=== PATIENT | male | born 1965 | race Caucasian/White ===

== ENCOUNTER 2016-07-04 05:43 | Outpatient (CLI) | payer SELFPAY ==
[~2016-07-04] VITALS: Ht 180.3 cm; Wt 99.8 kg
--- OUTSIDE RECORDS SUMMARY | 2016-07-04 05:49 | XMS REPORT | Clinical Summary ---
Author Author User, [employer] Organization Gabriella Gardiner DO, [employer] Address Unknown Phone Allergies, Adverse Reactions, Alerts Allergy Name Reaction Description Start Date Severity Status Provider No Known Allergies Liseth Main Conditions or Problems Problem Name Problem Code Onset Date Status Entry Date Provider Comment Standard Description Annotate HEALTH SCREENING V70.0 Active Gabriella Gardiner Routine general medical examination at a health care facility HYPERTRIGLYCERIDEMIA 272.1 Active Gabriella Gardiner Pure hyperglyceridemia HYPERGLYCEMIA, MILD 790.6 Active Gabriella Gardiner Other abnormal blood chemistry SMOKER 305.1 Active Gabriella Gardiner Tobacco use disorder Medication List Medication Instructions Start Date Stop Date Generic Name NDC Status Provider Patient Instruction LISINOPRIL 20 MG TABS 1 PO DAILY LISINOPRIL 36926008311 Active Vanita Acevedo FISH OIL 1000 MG CAPS 1 PO daily OMEGA-3 FATTY ACIDS 70211842595 Active Gabriella Gardiner Immunizations Vaccine Administration Date Value Standard Description Influenza vaccine given done influenza virus vaccine, unspecified formulation Vital Signs Date Name Value Unit Range Description blood pressure, diastolic - 8462-4 80 mm[Hg] BP coleman blood pressure, systolic - 8480-6 130 mm[Hg] BP sys pulse rate E&M - 8867-4 80 /min Heart rate respiratory rate E&M - 9279-1 14 /min Resp rate temperature E&M 98.3 [degF] Body temperature weight E&M - 3141-9 230 [lb_av] Weight Measured Diagnostic Results Date Name Value Unit Range Description Clinical Lists Update: CBC,CMP,FLP,TSH,HGA1C - Chemistry Estimated Glomerular Filtration Rate (calc) 92 mL/min/1.73m2 cholesterol, serum 192 mg/dL albumin, serum 4.8 g/dL cholesterol/HDL ratio, serum, percent 3.8 anion gap, serum 9 sodium, serum 133 mmol/L alkaline phosphatase, serum 65 U/L triglyceride, serum, fasting 193 mg/dL bilirubin, serum, total 0.6 mg/dL alanine aminotransferase (SGPT), serum 42 U/L aspartate aminotransferase (SGOT), serum 28 U/L protein, total, serum 7.0 g/dL potassium, serum 4.4 mmol/L urea nitrogen, blood 16 mg/dL LDL cholesterol, serum 103 mg/dL thyroid stimulating hormone, serum 1.39 u[iU]/mL hemoglobin A1C, blood, as % of total hemoglobin 5.9 % calcium, serum 9.6 mg/dL HDL cholesterol, serum 50.0 mg/dL creatinine, serum 0.9 mg/dL carbon dioxide, venous blood 27.0 mmol/L chloride, serum 101 mmol/L glucose, plasma fasting 114 mg/dL Clinical Lists Update: CBC,CMP,FLP,TSH,HGA1C - Hematology hemoglobin, blood 15.4 g/dL hematocrit, blood 50 % platelet count 205 10*3/mm3 erythrocyte (RBC) count 5.17 10*6/mm3 leukocyte count, blood 7.2 10*3/mm3 red blood cell distribution width 14.0 % mean corpuscular volume, RBC 96 fL Clinical Lists Update: FLP - Chemistry cholesterol/HDL ratio, serum, percent 3.4 triglyceride, serum, fasting 107 mg/dL LDL cholesterol, serum 100 mg/dL HDL cholesterol, serum 50 mg/dL cholesterol, serum 172 mg/dL Procedures Code Procedure Name Date Entry Date Standard Description CPT-16532 Preventive, Est, (40-64) 17:23:08 CDT CPT-47499 Preventive, Est, (40-64) 14:45:01 CDT CPT-42936 Preventive, New, (40-64) 20:00:08 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
[2016-07-04] MEDS ORDERED: LISI-552 PO (13:24)
== END 2016-07-04 13:27 ==
LOC: PREOP 05:43
PROVIDERS: ATTEND Surgery
DX: Z01.818 Encounter for other preprocedural examination (principal); Z12.11 Encounter for screening for malignant neoplasm of colon

== ENCOUNTER 2016-07-08 08:33 | Day surgery (SDC) | payer OTHER ==
[~2016-07-08] VITALS: Ht 180.3 cm; Wt 99.8 kg
[~2016-07-08 08:33] MED LIST: LISI-552 PO
--- OUTSIDE RECORDS SUMMARY | 2016-07-08 08:36 | XMS REPORT | Continuity of Care Document ---
Author Author [facility] Organization [facility] Address Unknown Phone Unavailable Support Name Relationship Address Phone JIM HERNANDEZ MD Caregiver #[address] [facility] [place] [address] Insurance Providers Payer Name Policy Number Subscriber Name Relationship Unknown Advance Directives Directive Response Recorded Date/Time Advance Directives No 07/04/16 1:22pm Health Care Power of Registrar [employer] No 07/04/16 1:22pm Resuscitation Status Full Code 07/04/16 1:22pm Problems No problem information available. Medications Current Home Medications Medication Dose Units Route Directions Days/Qty Instructions Start Date Lisinopril 20 Mg 20 Mg Oral Daily 07/04/16 Social History Social History Problem Response Recorded Date/Time Alcohol Use Rarely Uses 07/04/2016 1:22pm Recreational Drug Use No 07/04/2016 1:22pm Recent Foreign Travel No 07/04/2016 1:22pm Recent Infectious Disease Exposure No 07/04/2016 1:22pm Sexually Transmitted Disease No 07/04/2016 1:22pm HIV/AIDS No 07/04/2016 1:22pm Smoking Status Current Everyday Smoker 07/04/2016 1:22pm Type Used Cigarettes 07/04/2016 1:22pm Recent Hopitalizations No 07/04/2016 1:22pm Sexually Transmitted Disease No 07/04/2016 1:22pm Query Response Start Date Stop Date Smoking Status Current Everyday Smoker Hospital Discharge Instructions No hospital discharge instructions. Plan of Care Discharge Date 07/04/16 1:27pm Prescriptions See Medication Section Functional Status No functional status results. Allergies, Adverse Reactions, Alerts No known allergies. Immunizations No immunization records. Vital Signs Acute Vital Signs Vital Response Date/Time Height (Feet) 5 feet 07/04/2016 1:08pm Height (Inches) 11.00 inches 07/04/2016 1:08pm Height (Calculated Centimeters) 180.380421 cm 07/04/2016 1:08pm Weight (Pounds) 220 pounds 07/04/2016 1:08pm Weight (Ounces) 0.0 oz 07/04/2016 1:08pm Weight (Calculated Grams) 52856.32 gm 07/04/2016 1:08pm Weight (Calculated Kilograms) 99.339257 kilograms 07/04/2016 1:08pm Calculated BMI 30.7 07/04/2016 1:08pm Results No known relevant diagnostic tests, laboratory data and/or discharge summary. Procedures No known history of procedures. Encounters Encounter Location Arrival/Admit Date Discharge/Depart Date Attending Provider Departed Clinic [facility] 07/04/16 5:43am 07/04/16 1: 27pm JIM HERNANDEZ MD
--- OUTSIDE RECORDS SUMMARY | 2016-07-08 08:37 | XMS REPORT | Continuity of Care Document ---
Author Author [facility] Organization [facility] Address Unknown Phone Unavailable Support Name Relationship Address Phone JIM HERNANDEZ MD Caregiver #[address] [facility] [place] [address] Insurance Providers Payer Name Policy Number Subscriber Name Relationship Unknown Advance Directives Directive Response Recorded Date/Time Advance Directives No 07/04/16 1:22pm Health Care Power of Plasticator No 07/04/16 1:22pm Resuscitation Status Full Code [...] 11.00 inches 07/04/2016 1:08pm Height (Calculated Centimeters) 180.491095 cm 07/04/2016 1:08pm Weight (Pounds) 220 pounds 07/04/2016 1:08pm Weight (Ounces) 0.0 oz 07/04/2016 1:08pm Weight (Calculated Grams) 36443.32 gm 07/04/2016 1:08pm Weight (Calculated Kilograms) 99.444475 kilograms 07/04/2016 1:08pm Calculated BMI 30.7 07/04/2016 1:08pm Results No known relevant diagnostic tests, laboratory data and/or discharge summary. Procedures No known history of procedures. Encounters Encounter Location Arrival/Admit Date Discharge/Depart Date Attending Provider Departed Clinic [facility] 07/04/16 5:43am 07/04/16 1: 27pm JIM HERNANDEZ MD
[2016-07-08 08:45] VITALS: BP 128/90
[2016-07-08] MEDS ORDERED: NS IV 500 ML 500 ML IV PRN (08:50)
--- NOTE | 2016-07-08 08:55 | Pre-Op Note & Conscious Sedat ---
Pre-Operative Progress Note H&P Reviewed The H&P was reviewed, patient examined and no changes noted. Date H&P Reviewed: Jul 08, 2016 Time H&P Reviewed: 08:55 Pre-Op Diagnosis: screening Conscious Sedation Pre-Proced ASA Class: 2 Airway Mallampati Classification: ([place] appropriate class) I. II. III, IV Lungs Heart ASA score ASA 1: a normal healthy patient ASA 2: a patient with a mild systemic disease (mid diabetes, controlled hypertension, obesity ASA 3: a patient with a severe systemic disease that limits activity (angina , COPD, prior Myocardial infarction) ASA 4: a patient with an incapacitating disease that is a constant threat to life (CHF, renal failure) ASA 5: a moribund patient not expected to survive 24 hrs. (ruptured aneurysm) ASA 6: a declared brain patient whose organs are being harvested. For emergent operations, add the letter E after the classification Grade 1 Sedation Plan: Discussed options with patient/fam Note The patient is an appropriate candidate to undergo the planned procedure, sedation, and anesthesia. The patient immediately re-assessed prior to indication. JIM HERNANDEZ MD Jul 08, 2016 8:55 am
[2016-07-08] MEDS ORDERED: FLUMAZENIL (ROMAZICON) 0.1 MG/ML 5 ML VIAL INJ PRN (09:00)
[2016-07-08] MEDS ORDERED: NALOXONE 0.4 MG/ML 1 ML (NARCAN) VIAL IVP PRN (09:00)
[2016-07-08] MEDS ORDERED: fentaNYL INJECTION 100 MCG/2 ML AMP ONE ×2 (09:34)
[2016-07-08] MEDS ORDERED: MIDAZOLAM 2 MG/2 ML (VERSED) VIAL ONE ×3 (09:34)
[2016-07-08] MEDS: fentaNYL INJECTION 100 MCG/2 ML AMP IVP PRN ×2 (09:52→09:55)
[2016-07-08] MEDS: MIDAZOLAM 2 MG/2 ML (VERSED) VIAL IVP PRN ×2 (09:53→09:56)
--- NOTE | 2016-07-08 10:11 | Progress Note-Post Operative ---
Post-Operative Progess Note Pre-Operative Diagnosis screening Post-Operative Diagnosis very few sigmoid diverticulae Post-Op Procedure Note Date of Procedure: Jul 08, 2016 Name of Procedure: colonoscopy to cecum Anesthesia Type sedation JIM HERNANDEZ MD Jul 08, 2016 10:11 am
--- NOTE | 2016-07-08 10:12 | Discharge Inst-Simple/Standard ---
Discharge Inst-Standard Discharge Medications New, Converted or Re-Newed RX: Other Patient Instructions/Follow Up Plan of Care/Instructions/FU: repeat colonoscopy in 10 years Activity as Tolerated: Yes Discharge Diet: No Restrictions JIM HERNANDEZ MD Jul 08, 2016 10:12 am
[2016-07-08 10:20] VITALS: BP 107/71
[2016-07-08 10:50] VITALS: BP 122/77
[2016-07-08 11:00] VITALS: BP 122/77
--- NOTE | 2016-07-08 12:49 | PROCEDURE REPORT ---
PROCEDURE PHYSICIAN: JIM HERNANDEZ DATE OF PROCEDURE: PROCEDURE: Screening colonoscopy. SURGEON: Dr. Hernandez. INDICATION FOR THE PROCEDURE: This gentleman came in for screening colonoscopy. He denied any family history of colon cancer. Informed consent was obtained after reviewing the procedure in detail. DESCRIPTION OF PROCEDURE: He was placed in left lateral decubitus position and his vital signs were monitored. Conscious sedation was achieved using Versed and fentanyl. Digital rectal examination was unremarkable. The colonoscope was then introduced into the rectum and advanced all the way up to the cecum. It was then withdrawn slowly and the mucosa examined in a systematic fashion. FINDINGS: 1. Occasional sigmoid diverticula. 2. No polyps were found. He tolerated the procedure well and was taken back to the nursing area in a stable condition. IMPRESSION: 1. Screening colonoscopy. 2. No polyps. 3. Very few sigmoid diverticula. 4. Recommend repeating in 10 years. Job ID: [id number] Dictated Date: 07/08/2016 10:10:52 Special Education Aide Date: 07/08/2016 12:46:53 / lloyd MITCHELL
== END 2016-07-08 11:00 | disposition home or self-care (01) ==
LOC: ENDO 08:33
PROVIDERS: ATTEND Surgery
DX: Z12.11 Encounter for screening for malignant neoplasm of colon (principal); K57.90 Diverticulosis of intestine, part unspecified, without perforation or abscess without bleeding

== ENCOUNTER → 2020-12-05 | Outpatient (CLI) | payer OTHER ==
[~2020-12-05] MED LIST changes: -LISI-552 PO; +LISI20TA26 PO
--- NOTE | 2020-12-05 10:21 | Diagnostic Imaging Report ---
Indication: Cough. Findings: The lungs are clear. There is no failure, effusion or pneumothorax. Impression: No acute appearing abnormality. Dictated by: Dictated on workstation # [id number]
== END ==
LOC: RAD 08:51
PROVIDERS: ATTEND Internal Medicine
DX: R05 Cough (principal)
CPT/HCPCS: 71045

== ENCOUNTER → 2020-12-11 | Outpatient (CLI) | payer OTHER ==
[2020-12-11 17:13] LABS: BASOPHILS # (AUTO) 0.1 10^3/uL (0.0-0.1); BASOPHILS % (AUTO) 1 % (0-10); EOSINOPHILS # (AUTO) 0.1 10^3/uL (0.0-0.3); EOSINOPHILS % (AUTO) 1 % (0-10); HEMATOCRIT 47 % (40-54); HEMOGLOBIN 15.4 g/dL (13.3-17.7); LYMPHOCYTES # (AUTO) 2.9 10^3/uL (1.0-4.0); LYMPHOCYTES % (AUTO) 23 % (12-44); MEAN CORPUSCULAR HEMOGLOBIN 30 pg (25-34); MEAN CORPUSCULAR HGB CONC 33 g/dL (32-36); MEAN CORPUSCULAR VOLUME 91 fL (80-99); MEAN PLATELET VOLUME 11.9 fL (9.0-12.2); MONOCYTES # (AUTO) 1.2 10^3/uL (0.0-1.0); MONOCYTES % (AUTO) 9 % (0-12); NEUTROPHILS # (AUTO) 8.5 10^3/uL (1.8-7.8); NEUTROPHILS % (AUTO) 66 % (42-75); PLATELET COUNT 183 10^3/uL (130-400); WHITE BLOOD COUNT 12.8 10^3/uL (4.3-11.0)
[2020-12-11 17:24] LABS: CHLORIDE 109 MMOL/L (98-107); POTASSIUM 4.2 MMOL/L (3.6-5.0); SODIUM 143 MMOL/L (135-145)
[2020-12-11 17:25] LABS: CALCIUM 9.1 MG/DL (8.5-10.1)
[2020-12-11 17:26] LABS: GLUCOSE 105 MG/DL (70-105)
[2020-12-11 17:27] LABS: TOTAL PROTEIN 6.4 GM/DL (6.4-8.2)
[2020-12-11 17:28] LABS: BILIRUBIN,TOTAL 0.9 MG/DL (0.1-1.0); CARBON DIOXIDE 21 MMOL/L (21-32)
[2020-12-11 17:30] LABS: ALKALINE PHOSPHATASE 84 U/L (40-136); CREATININE SERUM 0.89 MG/DL (0.60-1.30); GFR ESTIMATED 89
[2020-12-11 17:31] LABS: BUN/CREATININE RATIO 26; ERYTHROCYTE SEDIMENTATION RATE 1 MM/HR (0-30)
[2020-12-11 17:33] LABS: ALANINE AMINOTRANSFERASE 51 U/L (0-55)
== END ==
LOC: LAB 16:38
PROVIDERS: ATTEND Internal Medicine
DX: J18.9 Pneumonia, unspecified organism (principal)
CPT/HCPCS: 36415; 80053; 83605; 83880; 84484; 85025; 85379; 85652

== ENCOUNTER 2020-12-18 10:21 | Inpatient (IN) | payer OTHER ==
[~2020-12-18] VITALS: Ht 182.9 cm; Wt 101.1 kg
[2020-12-18] VITALS (10 sets, daily range): BP systolic 81–112; BP diastolic 44–91
[2020-12-18] MEDS ORDERED: RT-ALBUTEROL SULF 2.5 MG/3 ML PRE-MIX VIAL INH ONE (11:30)
--- NOTE | 2020-12-18 12:15 | Progress Note ---
ELA JI MED STUDENT 12/18/20 1215: Progress Note CC: SOB HPI: Mr. Salazar is a 55 year old white male who presents as a direct admit with a three week history of SOB. He states that he initially became SOB on November 25. He reports quitting smoking on November 17 and was a 1PPD smoker x 21 years. The week after quitting smoking he began vigorously biking starting at 2 miles, then 4, up to 16 miles per day, after about 5 days he had to quit because the SOB started. He reports awakening at night multiple times with extreme "suffocating" SOB. These events have been happening multiple times each night for the past few weeks causing him to sleep 3-4 hours/night. He also reports multiple episodes happening throughout the day, which cause him to "have to work to breathe" suddenly. He reports having to leave work as he is too SOB. He denies any associated fevers, chills, cough, dizziness, palpitations, nausea, vomiting, diarrhea, or syncopal episodes. He has been wearing oxygen at night at 1.5LPM which has not improved his symptoms or lessened the frequency of these episodes. He has been seen by Dr. Gardiner four times over the past 2 weeks on an outpatient basis for these symptoms for which he has been worked up. He had been given outpatient antibiotics and steroids by Dr. Gardiner which have not improved his symptoms. He reports presenting to the walk in clinic in [facility] on November 27 where he had a workup including COVID-19 testing which was negative. On the he was last seen by Dr. Gardiner and his D-dimer was elevated, at which time he was started on eliquis and given lasix as well. PMH: HTN, controlled with losartan. Non insulin dependent diabetes mellitus PSH: None Allergies: NKDA. No environmental or food allergies. Medications: Losartan 50mg po Qday. Glimepiride 1 mg po Qday. Eliquis 2.5mg po Q am, 5mg Q PM. Furosemide 40mg po on Friday and Friday. SH: Former 1PPD smoker x 21 years, quit approx 1 month ago. Drinks 6-8 beers at a time approx one time a month. No recreational drug use. 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 FH: Mom, [place] at 44years old, at 58 years old. Dad, due to unknown causes. No kids. 1 brother reported as many health problems. ROS: General: Reports SOB at rest and with exertion. Denies fevers/chills/myalgias. HEENT: Denies headaches, congestion, sore throat. Reports recent blurry vision. Neck: Denies cough or sore throat. Denies throat swelling. Cardiovascular: Denies palpitations or fluttering. Denies chest pain. Denies lower extremity swelling. Pulmonary: Reports SOB. Denies cough. GI: Denies N/V/D. : Denies dysuria, frequency, or urgency Neuro: Reports blurry vision. Denies headache, dizziness, or syncopal episodes. Physical Exam: BP 112/76 RR 20 SPO2 96%RA P 106 T 36.8 General: Middle aged individual appearing stated age in minimal distress. HEENT: Normocephalic, atraumatic, sclera anicteric, posterior pharynx without exudates or erythema. Nares patent without discharge. Cardiovascular: Irregullary irregular rhythm by auscultation. No JVD. No lower extrem edema. Radial and dorsalis pedis pulses +2/4 bilaterally. Cap refill <3 seconds bilateral hands. Respiratory: CTAB. No wheezes, rhonchi, or rales. No accessory muscle use. Abdomen: BS normoactive x 4 quadrants. No distention, guarding, or rebound tenderness. Extremities: Bilat abrasives sales representative strength 5/5. Bilat ankle dorsiflexion and plantarflexion 5/5. Extremities warm and pink. Neuro: Cranial nerves 2-12 grossly intact. Labs/Images: Na 139 ABG: Venous Doppler lower extrem: CT chest Angio: Chest Xray: K 4.3 7.41 No evidence of DVT in either lower extremity. Creat 0.88 44 lactic acid 1.17 48 Troponin <0.028 28 BNP 220.9 Procalcitonin 0.06 UDS: negative COVID PCR: negative Legionella: pending Assessment: Dyspnea -obtain chest xray -ABG -albuterol neb -COVID PCR negative -blood cultures x 2 -Procalcitonin Atrial fibrillation- probably new onset -Cardiology consult -Cardiazem gtt per cardiology -Therapeutic lovenox dosing -Hold eliquis for now -Tropnonin <0.028 -BNP 220.9 -Get echocardiogram -EKG Possible Pulmonary embolism- less likely -D dimer elevated at 1.00 -Bilat lower extremity venous doppler US -CT Angio chest Possible anxiety disorder related to SOB -Counseled on calming/relaxing techniques Diabetes -ACHS accuchecks -Start home glimepiride -continue to monitor sugars HTN -Start home losartan -Continue to monitor GABRIELLA GARDINER DO 12/18/202054: Supervisory-Addendum Brief Verification & Attestation Participated in pt care: history, MDM, physical Personally performed: exam, history, MDM, supervision of care Care discussed with: Medical Student Procedures: n/a Results interpretation: Verified all documentation Verification and Attestation of Medical Student E/M Service A medical student performed and documented this service in my presence. I reviewed and verified all information documented by the medical student and made modifications to such information, when appropriate. I personally performed the physical exam and medical decision making. Gabriella Gardiner, Dec 18, 2020,20:55 ELA JI MED STUDENT Dec 18, 2020 12:15 GABRIELLA GARDINER DO Dec 18, 2020 20:55
[2020-12-18] MEDS ORDERED: IOHEXOL 350 MG/ML 100 ML (OMNIPAQUE 350) VIAL IV ONE (13:00)
[2020-12-18] MEDS ORDERED: NS 100 ML (IVPB) BAG IV ONE (13:00)
[2020-12-18] MEDS ORDERED: CATHETER FLUSH 10 ML SYR IV PRN ×2 (13:00→15:45)
[2020-12-18] MEDS ORDERED: HOLD METFORMIN - RECEIVED CONTRAST 20 ML VIAL IV SCH (13:00)
[2020-12-18 13:17] LABS: BASOPHILS # (AUTO) 0.1 10^3/uL (0.0-0.1); BASOPHILS % (AUTO) 1 % (0-10); EOSINOPHILS # (AUTO) 0.2 10^3/uL (0.0-0.3); EOSINOPHILS % (AUTO) 1 % (0-10); HEMATOCRIT 48 % (40-54); LYMPHOCYTES # (AUTO) 2.4 10^3/uL (1.0-4.0); LYMPHOCYTES % (AUTO) 20 % (12-44); MEAN CORPUSCULAR HEMOGLOBIN 30 pg (25-34); MEAN CORPUSCULAR HGB CONC 33 g/dL (32-36); MEAN CORPUSCULAR VOLUME 90 fL (80-99); MEAN PLATELET VOLUME 11.6 fL (9.0-12.2); MONOCYTES # (AUTO) 1.1 10^3/uL (0.0-1.0); MONOCYTES % (AUTO) 9 % (0-12); NEUTROPHILS % (AUTO) 68 % (42-75); PLATELET COUNT 153 10^3/uL (130-400); WHITE BLOOD COUNT 11.7 10^3/uL (4.3-11.0)
[2020-12-18 13:23] LABS: AMPHETAMINE SCREEN, URINE NEGATIVE (NEGATIVE); BARBITURATE SCREEN URINE NEGATIVE (NEGATIVE); BENZODIAZEPINES SCREEN URINE NEGATIVE (NEGATIVE); CANNABINOID SCREEN, URINE NEGATIVE (NEGATIVE); COCAINE SCREEN URINE NEGATIVE (NEGATIVE); METHADONE STAT NEGATIVE (NEGATIVE); METHAMPHETAMINE SCREEN URINE S NEGATIVE (NEGATIVE); OPIATE SCREEN URINE NEGATIVE (NEGATIVE); OXYCODONE STAT NEGATIVE (NEGATIVE); PROPOXYPHENE STAT NEGATIVE (NEGATIVE); TRICYCLIC ANTIDEPRESSANTS SCRE NEGATIVE (NEGATIVE)
[2020-12-18 13:28] LABS: ABG BASE EXCESS 3.2 MMOL/L (-2.5-2.5); ABG OXYGEN SATURATION 80 % (94-100); ABG PCO2 44 MMHG (35-45); ABG PH 7.41 (7.37-7.43); ABG PO2 48 MMHG (79-93); ABG TCO2 28.9 MMOL/L (21.0-31.0); PATIENT TEMP 36.8; VENTILATOR NO
[2020-12-18 13:28] LABS: INR 1.1 (0.8-1.4); PROTHROMBIN TIME PATIENT 14.8 SEC (12.2-14.7)
[2020-12-18] MEDS ORDERED: dilTIAZem DRIP PRE-MIX 125 ML IV ONE (13:28)
[2020-12-18 13:37] LABS: ALANINE AMINOTRANSFERASE 38 U/L (0-55); ALBUMIN 3.9 GM/DL (3.2-4.5); ALKALINE PHOSPHATASE 91 U/L (40-136); BILIRUBIN,TOTAL 1.1 MG/DL (0.1-1.0); BUN/CREATININE RATIO 26; CALCIUM 9.3 MG/DL (8.5-10.1); CARBON DIOXIDE 25 MMOL/L (21-32); CHLORIDE 106 MMOL/L (98-107); CREATININE SERUM 0.88 MG/DL (0.60-1.30); GFR ESTIMATED 90; GLUCOSE 162 MG/DL (70-105); POTASSIUM 4.3 MMOL/L (3.6-5.0); SODIUM 139 MMOL/L (135-145); TOTAL PROTEIN 6.7 GM/DL (6.4-8.2)
[2020-12-18] MEDS: dilTIAZem DRIP PRE-MIX 125 ML IV SCH ×2 (13:39→22:15)
[2020-12-18] MEDS ORDERED: FURO40TA4 PO (13:44)
[2020-12-18] MEDS ORDERED: APIX5TAB PO ×2 (13:44)
[2020-12-18] MEDS ORDERED: GLIM1TAB4 PO (13:44)
[2020-12-18] MEDS ORDERED: LOSA50TA63 PO (13:44)
[2020-12-18] MEDS: ENOXAPARIN 100 MG/1 ML (LOVENOX) SYR SC SCH (14:39)
--- NOTE | 2020-12-18 14:44 | Diagnostic Imaging Report ---
PROCEDURE: US Venous Lower Ext Genaro. TECHNIQUE: Multiple real-time grayscale images were obtained over the lower extremities in various projections, bilaterally. Additional duplex Doppler and color Doppler images were also obtained. INDICATION: Elevated D-dimer. FINDINGS: The common femoral, femoral, popliteal veins and tibial veins demonstrate normal response to compression, augmentation and Valsalva. There are no abnormal lower extremity fluid collections or masses. IMPRESSION: No evidence of deep venous thrombosis in either lower extremity. Dictated by: Dictated on workstation # [id number]
--- NOTE | 2020-12-18 15:56 | Consultation-Cardiology ---
HPI-Cardiology Cardiology Consultation: Date of Consultation 12/18/2020 Date of Admission 12/18/2020 Attending Physician Gabriella Gardiner DO Admitting Physician Gabriella Gardiner DO Consulting Physician BHARATHI ALMODOVAR JR, MD HPI: Time Seen by a Provider: 15:50 Chief Complaint: Reason for consultation: Shortness of breath. mEigdio Is a 55-year-old male with no known history of coronary artery disease but with risk factors of hypertension, type 2 diabetes mellitus, and previous cigarette smoking having quit about 3 weeks ago. About 3-4 weeks ago he just decided that it was time to become more healthy and that he would quit smoking. Within a few days of quitting smoking, he started developing a cough productive of some whitish mucus. At first he thought this was just related to the smoking cessation. However, as time went on, he started developing worsening shortness of breath. 2 weeks ago he went to [facility] and discussed his concerns. He had a Covid test which was negative and he was sent home. However, as time has gone on, his breathing has become worse and worse. The cough has persisted. He denies any fever or chills. He was actually using some supplemental oxygen that he had at home for a family member and this was helping him breathe. He had to miss 1 or 2 days of work due to his shortness of breath. He denies any chest discomfort. He ultimately saw his primary provider who did some blood work which showed an elevated D-dimer. When the D-dimer came back elevated, he was told to start apixaban and was scheduled for a chest CT this week. However, this morning his breathing was worse and he called his primary doctor and told him he was coming to the hospital for further evaluation. For at least the past several days has been having paroxysmal nocturnal dyspnea and orthopnea. Last night he tried sleeping in a chair but still could not get comfortable enough to catch his breath. He denies any palpitations but he was checking his heart rate on a pulse oximeter he had at home and was noticing tachycardia. He denies lightheadedness, syncope, or ankle edema. When he arrived at the hospital, he was found to be in atrial fibrillation with a rapid ventricular rate. He was started on intravenous diltiazem and transferred to the intensive care unit. Because of the shortness of breath and atrial fibrillation, a cardiology consultation was requested. Certain portions of this document may have been dictated utilizing voice recognition technology. Inherent to this technology, typographical and grammatical errors may exist. As much as I am diligent to identify and correct these mistakes, some errors may remain in the document. Review of Systems-Cardiology Review of Systems Other comments Review of 10 organ systems is as per the history of present illness, otherwise negative. [id number] Hx Patient Social History Marrital Status: Employed/Student: employed Smoking Status: Former Smoker Have you traveled recently?: No Alcohol Use?: Yes Pt feels they are or have been: No Past Medical History PMH As described under Assessment. Family Medical History Family Medical History: The patient does not know of any family history of premature coronary artery disease. Allergies and Home Medications Allergies Coded Allergies: No Known Drug Allergies (Unverified , 07/04/16) Home Medications Apixaban 5 Mg Tablet, 5 MG PO HS, (Reported) Last Action: Reviewed Apixaban 5 Mg Tablet, 2.5 MG PO DAILY, (Reported) TAKES OF A 5MG TAB Last Action: Reviewed Furosemide 40 Mg Tablet, 40 MG PO SUN,SAT, (Reported) Last Action: Reviewed Glimepiride 1 Mg Tablet, 1 MG PO 1800, (Reported) Last Action: Reviewed Losartan Potassium 50 Mg Tablet, 50 MG PO DAILY, (Reported) Last Action: Reviewed Patient Home Medication List Home Medication List Reviewed: Yes Exam Vital Signs Vital Signs Date Time Temp Pulse Resp B/P (MAP) Pulse Ox O2 Delivery O2 Flow Rate FiO2 12/18/20 15:26 35.6 12/18/20 14:12 Room Air 12/18/20 13:20 106 20 112/76 (88) 96 Physical Exam General: Alert. No acute distress. Well nourished and appears stated age. He is overweight. Eye: Extraocular movements are intact. Conjunctivae are clear. There are no xanthelasma. HENT: Normocephalic. Atraumatic. Carotid pulsations 2/2 without bruits. Neck: Jugular venous pressure does not appear elevated. No thyromegaly appreciated. Respiratory: Lungs are clear to auscultation. Respirations are non-labored. Breath sounds are equal. Symmetrical chest wall expansion. Cardiovascular: Tachycardia with irregular rhythm. No murmur. No gallop. Point of maximal impulse is not appear displaced. Good pulses equal in all extremities. No edema. Gastrointestinal: Soft. Normal bowel sounds. Skin: Skin turgor is normal. There is no pallor. Musculoskeletal: No kyphosis or scoliosis appreciated. Neurologic: Alert and oriented to person, place, time. Cranial nerves 3-12 appear grossly intact. The patient has good motor tone strength in the upper and lower extremities bilaterally. Psychiatric: Cooperative. Appropriate mood & affect. Labs Laboratory Tests Test 12/18/20 11:59 12/18/20 12:05 12/18/20 12:55 12/18/20 13:00 Range/Units SARS-CoV-2 RNA (RT-PCR) Not Detected Not Detecte White Blood Count 11.7 H 4.3-11.0 10^3/uL Red Blood Count 5.36 4.30-5.52 10^6/uL Hemoglobin 16.0 13.3-17.7 g/dL Hematocrit 48 40-54 % Mean Corpuscular Volume 90 80-99 fL Mean Corpuscular Hemoglobin 30 25-34 pg Mean Corpuscular Hemoglobin Concent 33 32-36 g/dL Red Cell Distribution Width 14.0 10.0-14.5 % Platelet Count 153 130-400 10^3/uL Mean Platelet Volume 11.6 9.0-12.2 fL Immature Granulocyte % (Auto) 1 % Neutrophils (%) (Auto) 68 42-75 % Lymphocytes (%) (Auto) 20 12-44 % Monocytes (%) (Auto) 9 0-12 % Eosinophils (%) (Auto) 1 0-10 % Basophils (%) (Auto) 1 0-10 % Neutrophils # (Auto) 8.0 H 1.8-7.8 10^3/uL Lymphocytes # (Auto) 2.4 1.0-4.0 10^3/uL Monocytes # (Auto) 1.1 H 0.0-1.0 10^3/uL Eosinophils # (Auto) 0.2 0.0-0.3 10^3/uL Basophils # (Auto) 0.1 0.0-0.1 10^3/uL Immature Granulocyte # (Auto) 0.1 0.0-0.1 10^3/uL Prothrombin Time 14.8 H 12.2-14.7 SEC INR Comment 1.1 0.8-1.4 D-Dimer 1.00 H 0.00-0.49 UG/ML Sodium Level 139 135-145 MMOL/L Potassium Level 4.3 3.6-5.0 MMOL/L Chloride Level 106 98-107 MMOL/L Carbon Dioxide Level 25 21-32 MMOL/L Anion Gap 8 5-14 MMOL/L Blood Urea Nitrogen 23 H 7-18 MG/DL Creatinine 0.88 0.60-1.30 MG/DL Estimat Glomerular Filtration Rate 90 BUN/Creatinine Ratio 26 Glucose Level 162 H 70-105 MG/DL Lactic Acid Level 1.17 0.50-2.00 MMOL/L Calcium Level 9.3 8.5-10.1 MG/DL Corrected Calcium 9.4 8.5-10.1 MG/DL Total Bilirubin 1.1 H 0.1-1.0 MG/DL Aspartate Amino Transf (AST/SGOT) 32 5-34 U/L Alanine Aminotransferase (ALT/SGPT) 38 0-55 U/L Alkaline Phosphatase 91 40-136 U/L Troponin I < 0.028 <0.028 NG/ML B-Type Natriuretic Peptide 220.9 H <100.0 PG/ML Total Protein 6.7 6.4-8.2 GM/DL Albumin 3.9 3.2-4.5 GM/DL Procalcitonin 0.06 <0.10 NG/ML Urine Opiates Screen NEGATIVE NEGATIVE Urine Oxycodone Screen NEGATIVE NEGATIVE Urine Methadone Screen NEGATIVE NEGATIVE Urine Propoxyphene Screen NEGATIVE NEGATIVE Urine Barbiturates Screen NEGATIVE NEGATIVE Ur Tricyclic Antidepressants Screen NEGATIVE NEGATIVE Urine Phencyclidine Screen NEGATIVE NEGATIVE Urine Amphetamines Screen NEGATIVE NEGATIVE Urine Methamphetamines Screen NEGATIVE NEGATIVE Urine Benzodiazepines Screen NEGATIVE NEGATIVE Urine Cocaine Screen NEGATIVE NEGATIVE Urine Cannabinoids Screen NEGATIVE NEGATIVE Test 12/18/20 13:17 12/18/20 13:26 Range/Units Blood Gas Puncture Site unk Blood Gas Patient Temperature 36.8 Arterial Blood pH 7.41 7.37-7.43 Arterial Blood Partial Pressure CO2 44 35-45 MMHG Arterial Blood Partial Pressure O2 48 L 79-93 MMHG Arterial Blood HCO3 28 H 23-27 MMOL/L Arterial Blood Total CO2 28.9 21.0-31.0 MMOL/L Arterial Blood Oxygen Saturation 80 L 94-100 % Arterial Blood Base Excess 3.2 H -2.5-2.5 MMOL/L [place] Test unk Blood Gas Ventilator Setting NO Blood Gas Inspired Oxygen unk Glucometer 158 H 70-110 MG/DL Radiology ECHOCARDIOGRAM: Moderate left ventricular dilatation with normal left ventricular wall thickness. Severe left ventricular systolic dysfunction with an estimated ejection fraction of 15-20% with global hypokinesis. Mildly dilated left atrium. Mild mitral regurgitation. Normal estimated pulmonary artery systolic pressure. ECG Impression ECG Comment Atrial fibrillation with a rapid ventricular rate with nonspecific ST-T wave changes. Diagnosis/Problems Diagnosis/Problems (1) Paroxysmal atrial fibrillation Assessment & Plan: He has atrial fibrillation with rapid ventricular rate. Exact duration unknown since the patient seems to be asymptomatic with this. He does not have significant atrial enlargement on his echocardiogram which suggests that this may be a relatively new finding. Ultimately, he will need anticoagulation for 30 days and then we can consider a cardioversion at that time. For the time being, we will continue IV diltiazem for rate control. I will start adding an oral beta-darline. I will add a TSH level to his admission labs. Given that he also has severe left ventricular systolic dysfunction, it is unclear whether the cardiomyopathy led to the atrial fibrillation or if the atrial fibrillation led to the tachycardia. (2) Acute systolic heart failure Assessment & Plan: His symptoms are certainly consistent with heart failure over the past few weeks. He had a negative Covid test. His BNP level is elevated. He will be undergoing a chest CT with IV contrast due to the elevated D-dimer level. This may give us some insight as to whether or not he has pulmonary edema. I will start him on low-dose metoprolol succinate. I will also start him on IV Lasix. (3) Cardiomyopathy Assessment & Plan: He has severe left ventricular systolic dysfunction of undetermined etiology. As above, this could be tachycardia mediated cardiomyopathy related to undiagnosed/newly diagnosed atrial fibrillation. On the other hand, he has several cardiac risk factors and coronary ischemia is certainly in the differential diagnosis. As such, I recommend further evaluation with a cardiac catheterization. I will plan on doing the study tomorrow. In the interim, I will start him on metoprolol succinate. For the time being, I will hold off on restarting losartan so that we can help avoid iatrogenic hypotension. Furthermore, he will be receiving IV contrast today for the CT scan and arterial contrast tomorrow for the heart cath. (4) Essential hypertension Assessment & Plan: Presently controlled on IV diltiazem. I will be adding in metoprolol succinate as outlined above. Hopefully, we can get his heart rate under control on oral medication and stop the IV diltiazem. At that point, we may be able to add back in the losartan. (5) Type 2 diabetes mellitus with complication Assessment & Plan: His primary provider will be managing this condition. He may benefit from a SGLT2 inhibitor in the long run. BHARATHI ALMODOVAR JR, MD Dec 18, 2020 15:56
[2020-12-18] MEDS ORDERED: ASPIRIN E.C. 81 MG (ECOTRIN) TAB PO ONE (16:00)
[2020-12-18] MEDS ORDERED: FUROSEMIDE 40 MG/4 ML INJ (LASIX) IVP ONE (16:15)
--- NOTE | 2020-12-18 16:22 | Tele-ICU Progress Note ---
Progress Note Video assessment done , Hemodynamically stable Available charting reviewed, discussed with RN NO TELE-ICU CONSULT REQUESTED CONTINUE TO MONITOR PER USUAL TELE-ICU PROTOCOL afib RVR - cardizem gtt , full dose lovenox -cards consulted , ECHO pending - CTA chest pending Leukocytosis - ? bronchitis vs PNA - CT pending , OFF ABX now as per kamila HERNÁNDEZ No need for Tele-ICU interventions Plans as delineated by bedside physicians / consultants Focused Exam Lactate Level 12/18/20 12:55: Lactic Acid Level 1.17 Height, Weight, BMI Height: 5'11.00" Weight: 220lbs. 0.0oz. 99.536088or; 28.87 BMI Method: Lactic Acid Level Laboratory Tests Test 12/18/20 12:55 Lactic Acid Level 1.17 MMOL/L (0.50-2.00) JASSI GOFF MD Dec 18, 2020 16:22
--- NOTE | 2020-12-18 16:37 | Diagnostic Imaging Report ---
PROCEDURE: CT angiography of the chest with contrast. TECHNIQUE: Multiple contiguous axial images were obtained through the chest after uneventful bolus administration of intravenous contrast. 3D reconstructed CTA MIP acquisitions were also performed. Auto Exposure Controls were utilized during the CT exam to meet ALARA standards for radiation dose reduction. INDICATION: Elevated d-dimer The lungs are clear. There are small bilateral pleural effusions which layer to a depth of 1-2 cm on the right and less than 1 cm on the left. There is no pneumothorax. There is no mediastinal mass or hemorrhage. The aorta is not opacified and cannot be evaluated for dissection but there is no aneurysm. No pulmonary embolus is seen. IMPRESSION: There are small bilateral effusions. No pulmonary embolus is seen. Dictated by: Dictated on workstation # [id number]
[2020-12-18] MEDS ORDERED: LOPERAMIDE 2 MG (IMODIUM) TABLET PO PRN (18:30)
[2020-12-18] MEDS ORDERED: CALCIUM CARBONATE 500 MG (TUMS) TAB.CHEW PO PRN (18:30)
[2020-12-18] MEDS ORDERED: MELATONIN 3 MG TABLET PO PRN (18:30)
[2020-12-18] MEDS ORDERED: DOCUSATE SODIUM 100 MG (COLACE) CAP PO PRN (18:30)
[2020-12-18] MEDS ORDERED: ONDANSETRON 4 MG/2 ML (SDV) Z0FRAN IVP PRN (18:30)
[2020-12-18] MEDS ORDERED: ALPRAZolam 0.25 MG (XANAX) TAB PO PRN (18:30)
[2020-12-18] MEDS: SENNA W/DOCUSATE (SENOKOT S) TABLET PO SCH (20:19)
[2020-12-18] MEDS: inSUlin ASPART (NovoLOG) 1 UNIT/0.01 ML (CHARGE PER UNIT) SQ SCH (20:19)
[2020-12-18] MEDS: ACETAMINOPHEN 500 MG TAB (TYLENOL) PO PRN (20:20)
--- NOTE | 2020-12-18 20:48 | History & Physical ---
History of Present Illness HPI/Chief Complaint CC: SOB HPI: This is a 55yoWM clinic pt of mine who I directly admitted due to concerning symptoms of SOB. Apparently a little over two weeks ago he was Covid tested after he went to [facility] with SOB and a cough. Covid test was negative at that time and pt had recently stopped smoking two weeks prior to that and had started a diet and actually exercising a lot but began having SOB. I have seen him twice a week for two weeks pursing other things including exacerbation of COPD and bronchitis and then when I obtained labs including CXR that was negative, D-dimer was elevated and elevated BNP so I did give him Lasix for volume overload and placed him on Eliquis in preparation for CT chest angiogram to rule out PE. When he presented to room 508, he was assessed, EKG obtained per protocol orders placed and he was found to be in new onset AF with RVR. Dr. Greenfield has been consulted, Cardizem drip will be started, and Eliquis will be maintained at 5mg twice daily. Full work up will proceed. Source: patient, family, old records Exam Limitations: no limitations Date Seen 12/18/20 Time Seen by a Provider: 11:00 Attending Physician Gabriella Gardiner DO PCP Gabriella Gardiner DO Referring Physician Date of Admission Dec 18, 2020 at 11:18 Home Medications & Allergies Home Medications Reviewed patient Home Medication Reconciliation performed by pharmacy medication reconciliations communications tower technician and/or nursing. Patients Allergies have been reviewed. Allergies Allergies Coded Allergies No Known Drug Allergies (Unverified07/04/16) Past Jbhyzpf-Zwnjcx-Qurbmy Hx Past Med/Social Hx: Reviewed Nursing Past Med/Soc Hx, Reviewed and Corrections made Patient Social History Marrital Status: Employed/Student: employed Alcohol Use: Denies Use Smoking Status: Former Smoker (Quit 1 month ago) Type Used: Cigarettes Recent Foreign Travel: No Contact w/other who traveled: No Recent Hopitalizations: No Seasonal Allergies Seasonal Allergies: No Past Medical History Cardiac: Hypertension Reproductive: No Sexually Transmitted Disease: No HIV/AIDS: No Endocrine: Diabetes, Non-Insulin dep Adverse Reaction to Blood [place]: No (N/A) Review of Systems Constitutional: see HPI Respiratory: cough, short of breath Physical Exam Physical Exam Vital Signs Vital Signs - First Documented 12/18/20 12/18/20 13:00 13:20 Temp 36.8 Pulse 132 Resp 20 B/P (MAP) 112/76 (88) Pulse Ox 96 O2 Delivery Room Air Capillary Refill : Height, Weight, BMI Height: 5'11.00" Weight: 220lbs. 0.0oz. [id number]; 28.87 BMI Method: General Appearance: WD/WN, Anxious, Chronically ill Eyes: Bilateral Eye Normal Inspection, Bilateral Eye PERRL HEENT: PERRL/EOMI, Normal ENT Inspection, Pharynx Normal Neck: Full Range of Motion, Normal Inspection, Non Tender, Supple, Carotid Bruit Respiratory: Chest Non Tender, Lungs Clear, No Accessory Muscle Use, No Respiratory Distress, Decreased Breath Sounds Cardiovascular: Regular Rate, Rhythm, No Edema, No Gallop, No JVD, No Murmur, Normal Peripheral Pulses Gastrointestinal: Normal Bowel Sounds, No Organomegaly, No Pulsatile Mass, Non Tender, Soft Back: Normal Inspection, No CVA Tenderness, No Vertebral Tenderness Extremity: Normal Capillary Refill, Normal Inspection, Normal Range of Motion, Non Tender, No Calf Tenderness, No Pedal Edema Neurologic/Psychiatric: Alert, Oriented x3, No Motor/Sensory Deficits, Normal Mood/Affect Skin: Normal Color, Warm/Dry Lymphatic: No Adenopathy Results Results/Procedures Labs Laboratory Tests 12/18/20 12:55 12/19/20 03:13 Patient resulted labs reviewed. Assessment/Plan Admission Diagnosis Assessment: Shortness of breath New onset atrial fibrillation with rapid ventricular response requiring Cardizem drip and ICU transfer Elevated BNP Elevated D-dimer Former smoker quit 1 month ago Diabetes mellitus Hypertension In denial about medical issues Plan: Cardiology consult Cardizem drip Cardiac cath tomorrow Echocardiogram Monitor labs Admission Status: Inpatient Order (span 2 midnights) Reason for Inpatient Admission: CHF and A. fib with RVR all new onset Diagnosis/Problems Diagnosis/Problems (1) Acute systolic heart failure (2) Cardiomyopathy (3) Type 2 diabetes mellitus with complication (4) Mixed hyperlipidemia (5) Essential hypertension (6) Paroxysmal atrial fibrillation (7) Dyspnea GABRIELLA GARDINER DO Dec 18, 2020 20:48
[2020-12-19] VITALS (24 sets, daily range): BP systolic 83–120; BP diastolic 38–99
[2020-12-19] MEDS: ENOXAPARIN 100 MG/1 ML (LOVENOX) SYR SC SCH (02:44)
[2020-12-19 04:05] LABS: BASOPHILS # (AUTO) 0.1 10^3/uL (0.0-0.1); BASOPHILS % (AUTO) 1 % (0-10); EOSINOPHILS # (AUTO) 0.2 10^3/uL (0.0-0.3); EOSINOPHILS % (AUTO) 2 % (0-10); HEMATOCRIT 52 % (40-54); HEMOGLOBIN 17.4 g/dL (13.3-17.7); LYMPHOCYTES # (AUTO) 3.6 10^3/uL (1.0-4.0); LYMPHOCYTES % (AUTO) 25 % (12-44); MEAN CORPUSCULAR HEMOGLOBIN 30 pg (25-34); MEAN CORPUSCULAR HGB CONC 33 g/dL (32-36); MEAN CORPUSCULAR VOLUME 90 fL (80-99); MEAN PLATELET VOLUME 12.8 fL (9.0-12.2); MONOCYTES # (AUTO) 1.2 10^3/uL (0.0-1.0); MONOCYTES % (AUTO) 9 % (0-12); NEUTROPHILS # (AUTO) 9.1 10^3/uL (1.8-7.8); NEUTROPHILS % (AUTO) 64 % (42-75); PLATELET COUNT 156 10^3/uL (130-400); WHITE BLOOD COUNT 14.4 10^3/uL (4.3-11.0)
[2020-12-19 04:31] LABS: POTASSIUM 4.4 MMOL/L (3.6-5.0)
[2020-12-19 04:32] LABS: ALBUMIN 4.2 GM/DL (3.2-4.5); CALCIUM 9.8 MG/DL (8.5-10.1)
[2020-12-19 04:34] LABS: TOTAL PROTEIN 7.3 GM/DL (6.4-8.2)
[2020-12-19 04:36] LABS: BILIRUBIN,TOTAL 1.3 MG/DL (0.1-1.0)
[2020-12-19 04:37] LABS: PHOSPHORUS 5.4 MG/DL (2.3-4.7)
[2020-12-19 04:38] LABS: CREATININE SERUM 1.19 MG/DL (0.60-1.30)
[2020-12-19] MEDS: POTASSIUM CL 10MEQ/50ML IVPB 50 ML IV SCH (05:01)
[2020-12-19] MEDS: MAGNESIUM 1 GM/100 ML IVPB 100 ML IV SCH (05:01)
[2020-12-19] MEDS: KCL 20 MEQ TAB (K-DUR) PO SCH (05:02)
[2020-12-19] MEDS: inSUlin ASPART (NovoLOG) 1 UNIT/0.01 ML (CHARGE PER UNIT) SQ SCH ×4 (05:02→20:15)
[2020-12-19 05:14] LABS: EOSINOPHILS % (MANUAL) 4 %; LYMPHOCYTES % (MANUAL) 25 %; MONOCYTES % (MANUAL) 10 %; NEUTROPHILS % (MANUAL) 61 %
[2020-12-19] MEDS ORDERED: HEParin (CATH LAB) 2,000 ML IV ONE (06:46)
[2020-12-19] MEDS ORDERED: LIDOCAINE 1% INJ 20 ML 20 ML VIAL ONE (06:46)
[2020-12-19] MEDS ORDERED: NS IV 1000 ML 1,000 ML IV ONE (07:00)
--- NOTE | 2020-12-19 07:05 | Diagnostic Imaging Report ---
INDICATION: Dyspnea. Comparison made with prior examination of 12/05/2020. FINDINGS: Heart size is normal. There is venous congestion. No pleural effusion or pneumothorax. Mediastinum is unremarkable. IMPRESSION: Moderate central pulmonary venous congestion. Dictated by: Dictated on workstation # [id number]
[2020-12-19] MEDS: ASPIRIN E.C. 81 MG (ECOTRIN) TAB PO SCH (07:56)
[2020-12-19] MEDS: FUROSEMIDE 40 MG/4 ML INJ (LASIX) IVP SCH (07:57)
[2020-12-19] MEDS: SENNA W/DOCUSATE (SENOKOT S) TABLET PO SCH ×2 (08:00→19:17)
[2020-12-19 08:35] LABS: ABG BASE EXCESS 3.4 MMOL/L (-2.5-2.5); ABG OXYGEN SATURATION 94 % (94-100); ABG PCO2 38 MMHG (35-45); ABG PH 7.46 (7.37-7.43); ABG PO2 63 MMHG (79-93); ABG TCO2 28.3 MMOL/L (21.0-31.0)
[2020-12-19 08:36] LABS: ALLENS TEST POSITIVE; PATIENT TEMP 36.3; VENTILATOR NO
[2020-12-19] MEDS ORDERED: VERAPAMIL 5 MG/2 ML (CALAN) VIAL IV ONE (08:44)
[2020-12-19] MEDS ORDERED: fentaNYL INJ 100 MCG/2 ML AMP ONE (08:44)
[2020-12-19] MEDS ORDERED: MIDAZOLAM 5 MG/5 ML (VERSED) VIAL ONE (08:44)
[2020-12-19] MEDS ORDERED: NITRO DRIP 25000 MCG/D5W 250 ML IV ONE (08:45)
[2020-12-19] MEDS ORDERED: NS IV 1000 ML 1,000 ML ONE (08:45)
[2020-12-19] MEDS ORDERED: HEParin 1000 UNIT/ML (10ML VIAL) FOR BOLUS ONE (08:45)
--- NOTE | 2020-12-19 08:47 | Pre-Op Note & Conscious Sedat ---
Pre-Operative Progress Note H&P Reviewed The H&P was reviewed, patient examined and no changes noted. Date H&P Reviewed: Dec 19, 2020 Time H&P Reviewed: 08:47 Pre-Op Diagnosis: Cardiomyopathy. Conscious Sedation Pre-Proced Time 08:47 ASA Score 2 For ASA 3 and 4: Consider anesthesia and medical clearance. Also, for patients with a history of failed moderate sedation consider anesthesia. Airway Lungs Heart ASA score ASA 1: a normal healthy patient ASA 2: a patient with a mild systemic disease (mid diabetes, controlled hypertension, obesity ASA 3: a patient with a severe systemic disease that limits activity (angina, COPD, prior Myocardial infarction) ASA 4: a patient with an incapacitating disease that is a constant threat to life (CHF, renal failure) ASA 5: a moribund patient not expected to survive 24 hrs. (ruptured aneurysm) ASA 6: a declared brain- patient whose organs are being harvested. For emergent operations, add the letter E after the classification Mallampati Classification Grade 2 Sedation Plan Analgesia, Amnesia, Plan communicated to team members, Discussed options with patient/fam, Discussed risks with patient/fam The patient is an appropriate candidate to undergo the planned procedure, sedation, and anesthesia. The patient immediately re-assessed prior to indication. BHARATHI ALMODOVAR JR, MD Dec 19, 2020 08:47
[2020-12-19] MEDS ORDERED: CLOPIDOGREL 300 MG (PLAVIX) TABLET PO ONE (09:34)
[2020-12-19] MEDS ORDERED: PATIENT MAY USE OWN MEDS, ALL PO SCH (10:00)
[2020-12-19] MEDS: dilTIAZem DRIP PRE-MIX 125 ML IV SCH (11:02)
--- NOTE | 2020-12-19 11:23 | Progress Note ---
ELA JI MED STUDENT 12/19/20 1123: Subjective Date Seen by a Provider: Dec 19, 2020 Time Seen by a Provider: 07:15 Subjective/Events-last exam Patient awake alert and cooperative sitting in the bed. He immediately complained about not sleeping due to interruptions from staff. Still reporting same SOA that is unchanging. Denies chest pain, fever, nausea, vomiting, diarrhea, and chills. Reports his want to eat and his only need at the moment. Cardiology plans on taking him for cardiac cath this morning. Review of Systems General: No Chills, No Night Sweats; Fatigue, Malaise HEENT: No Head Aches, No Visual Changes Pulmonary: Dyspnea, Cough Cardiovascular: Orthopnea, Paroxysmal Noc. Dyspnea; No: Chest Pain, Palpitations, Edema Gastrointestinal: No: Nausea, Vomiting, Abdominal Pain Genitourinary: No Dysuria, No Frequency Musculoskeletal: No: neck pain, back pain Neurological: No: Weakness, Numbness, Confusion Focused Exam Lactate Level 12/18/20 12:55: Lactic Acid Level 1.17 Objective Exam Last Set of Vital Signs Vital Signs Date Time Temp Pulse Resp B/P (MAP) Pulse Ox O2 Delivery O2 Flow Rate FiO2 12/19/20 08:00 Room Air 12/19/20 07:45 36.7 12/19/20 07:00 105 12/19/20 06:30 17 102/82 (89) 94 Capillary Refill : Less Than 3 Seconds I&O Intake and Output 12/19/20 00:00 Intake Total 1600 ml Output Total 1900 ml Balance -300 ml Intake Oral 1600 ml Output Urine Total 1900 ml Daily Weight Change No General: Alert, Oriented X3, Cooperative, Mild Distress HEENT: Atraumatic, PERRLA, EOMI Neck: Supple, No Thyromegaly Lungs: Clear to Auscultation, Normal Air Movement Heart: Other (Monitor shows Afib) Abdomen: Normal Bowel Sounds, Soft, No Tenderness Extremities: No Clubbing, No Cyanosis, No Edema, Normal Pulses Skin: No Rashes, No Breakdown Neuro: Normal Gait, Normal Speech, Cranial Nerves 3-12 NL Psych/Mental Status: Mental Status NL, Mood NL Results Lab Laboratory Tests 12/18/20 11:59: SARS-CoV-2 RNA (RT-PCR) Not Detected 12/18/20 12:05: 12/18/20 12:55: White Blood Count 11.7H, Red Blood Count 5.36, Hemoglobin 16.0, Hematocrit 48, Mean Corpuscular Volume 90, Mean Corpuscular Hemoglobin 30, Mean Corpuscular Hemoglobin Concent 33, Red Cell Distribution Width 14.0, Platelet Count 153, Mean Platelet Volume 11.6, Immature Granulocyte % (Auto) 1, Neutrophils (%) (Auto) 68, Lymphocytes (%) (Auto) 20, Monocytes (%) (Auto) 9, Eosinophils (%) (Auto) 1, Basophils (%) (Auto) 1, Neutrophils # (Auto) 8.0H, Lymphocytes # (Auto) 2.4, Monocytes # (Auto) 1.1H, Eosinophils # (Auto) 0.2, Basophils # (Auto) 0.1, Immature Granulocyte # (Auto) 0.1, Prothrombin Time 14.8H, INR Comment 1.1, D-Dimer 1.00H, Sodium Level 139, Potassium Level 4.3, Chloride Level 106, Carbon Dioxide Level 25, Anion Gap 8, Blood Urea Nitrogen 23H, Creatinine 0.88, Estimat Glomerular Filtration Rate 90, BUN/Creatinine Ratio 26, Glucose Level 162H, Lactic Acid Level 1.17, Calcium Level 9.3, Corrected Calcium 9.4, Total Bilirubin 1.1H, Aspartate Amino Transf (AST/SGOT) 32, Alanine Aminotransferase (ALT/SGPT) 38, Alkaline Phosphatase 91, Troponin I < 0.028, B- Type Natriuretic Peptide 220.9H, Total Protein 6.7, Albumin 3.9, Procalcitonin 0.06 12/18/20 13:00: Urine Opiates Screen NEGATIVE, Urine Oxycodone Screen NEGATIVE, Urine Methadone Screen NEGATIVE, Urine Propoxyphene Screen NEGATIVE, Urine Barbiturates Screen NEGATIVE, Ur Tricyclic Antidepressants Screen NEGATIVE, Urine Phencyclidine Screen NEGATIVE, Urine Amphetamines Screen NEGATIVE, Urine Methamphetamines Screen NEGATIVE, Urine Benzodiazepines Screen NEGATIVE, Urine Cocaine Screen NEGATIVE, Urine Cannabinoids Screen NEGATIVE 12/18/20 13:17: Blood Gas Puncture Site unk, Blood Gas Patient Temperature 36.8, Arterial Blood pH 7.41, Arterial Blood Partial Pressure CO2 44, Arterial Blood Partial Pressure O2 48L, Arterial Blood HCO3 28H, Arterial Blood Total CO2 28.9, Arterial Blood Oxygen Saturation 80L, Arterial Blood Base Excess 3.2H, [place] Test unk, Blood Gas Ventilator Setting NO, Blood Gas Inspired Oxygen unk 12/18/20 13:26: Glucometer 158H 12/18/20 17:10: Glucometer 110 12/18/20 17:15: Thyroid Stimulating Hormone (TSH) 2.76 12/18/20 20:18: Glucometer 161H 12/19/20 03:13: White Blood Count 14.4H, Red Blood Count 5.84H, Hemoglobin 17.4, Hematocrit 52, Mean Corpuscular Volume 90, Mean Corpuscular Hemoglobin 30, Mean Corpuscular Hemoglobin Concent 33, Red Cell Distribution Width 14.0, Platelet Count 156, Mean Platelet Volume 12.8H, Immature Granulocyte % (Auto) 1, Neutrophils (%) (Auto) 64, Lymphocytes (%) (Auto) 25, Monocytes (%) (Auto) 9, Eosinophils (%) (Auto) 2, Basophils (%) (Auto) 1, Neutrophils # (Auto) 9.1H, Lymphocytes # (Aut o) 3.6, Monocytes # (Auto) 1.2H, Eosinophils # (Auto) 0.2, Basophils # (Auto) 0.1, Immature Granulocyte # (Auto) 0.1, Neutrophils % (Manual) 61, Lymphocytes % (Manual) 25, Monocytes % (Manual) 10, Eosinophils % (Manual) 4, Sodium Level 138, Potassium Level 4.4, Chloride Level 99, Carbon Dioxide Level 23, Anion Gap 16H, Blood Urea Nitrogen 26H, Creatinine 1.19, Estimat Glomerular Filtration Rate 64, BUN/Creatinine Ratio 22, Glucose Level 146H, Calcium Level 9.8, Corrected Calcium 9.6, Phosphorus Level 5.4H, Magnesium Level 2.0, Total Bilirubin 1.3H, Aspartate Amino Transf (AST/SGOT) 36H, Alanine Aminotransferase (ALT/SGPT) 37, Alkaline Phosphatase 78, Troponin I 0.031H, Total Protein 7.3, Albumin 4.2, Triglycerides Level 151H, Cholesterol Level 175, LDL Cholesterol Direct 93, VLDL Cholesterol 30, HDL Cholesterol 60 12/19/20 08:25: Blood Gas Puncture Site RIGHT RADIAL, Blood Gas Patient Temperature 36.3, Arterial Blood pH 7.46H, Arterial Blood Partial Pressure CO2 38, Arterial Blood Partial Pressure O2 63L, Arterial Blood HCO3 27, Arterial Blood Total CO2 28.3, Arterial Blood Oxygen Saturation 94, Arterial Blood Base Excess 3.4H, [place] Test POSITIVE, Blood Gas Ventilator Setting NO, Blood Gas Inspired Oxygen N/A 12/19/20 10:50: Glucometer 173H Assessment/Plan Assessment/Plan Assess & Plan/Chief Complaint Dyspnea- not improving -Titrate O2 to keep O2 sats > 90% -Encourage cough and deep breathing -sleep with HOB elevated New onset atrial fibrillation with rapid ventricular response -cardiology following -Continue cardizem gtt per cardiology -Continue cardiac monitoring -continue eliquis -lovenox dc'd Acute systolic heart failure - Continue recommendations per cardiology -continue IVP lasix --EF 15-20% via TTE 12/18/20 Cardiomyopathy - Continue recommendations per cardiology CAD -Status post cardiac cath 12/19/2020 with stenting -continue aspirin and plavix Elevated BNP -continue to monitor Elevated Troponin -trended down -continue to monitor Elevated D-dimer -continue to monitor as necessary Former smoker quit 1 month ago -encouraged continued abstinence Diabetes mellitus -continue SSI and accucheck achs Hypertension -Continue metoprolol In denial about medical issues GABRIELLA GOMEZ DO 12/20/20 0608: Subjective Subjective/Events-last exam Pt doing pretty well Just returned from cardiac catheterization He did have a 90% occlusion that was stented so Plavix and Aspirin and Eliquis on board He will go home on Plavix and eliquis Will need a sleep study Ejection fraction 20% is significant Cardizem drip still on board for AF with RVR ABG shows 7.46/38/63 Lasix 80mg IV given and that has helped his oxygenation Review of Systems General: Fatigue Pulmonary: Dyspnea Objective Exam General: Alert, Oriented X3, Cooperative, No Acute Distress Lungs: Clear to Auscultation Heart: Other (Monitor shows Afib) Psych/Mental Status: Mental Status NL, Mood NL Assessment/Plan Assessment/Plan Assess & Plan/Chief Complaint Assessment: Shortness of breath prompting work-up and diagnosis of severe cardiomyopathy ejection fraction 15-20% Status post cardiac catheterization with stent placement in diagonal branch New onset atrial fibrillation with rapid ventricular response requiring Cardizem drip and ICU transfer Elevated BNP Elevated D-dimer Former smoker quit 1 month ago Diabetes mellitus Hypertension In denial about medical issues Plan: Cardiology consult Cardizem drip Cardiac cath tomorrow Echocardiogram Monitor labs 12/19/2020: Maintain ICU status Plavix and Eliquis at discharge Continue diuresis Supervisory-Addendum Brief Verification & Attestation Participated in pt care: history, MDM, physical Personally performed: exam, history, MDM, supervision of care Care discussed with: Medical Student Procedures: n/a Results interpretation: Verified all documentation Verification and Attestation of Medical Student E/M Service A medical student performed and documented this service in my presence. I reviewed and verified all information documented by the medical student and made modifications to such information, when appropriate. I personally performed the physical exam and medical decision making. Gabriella Gomez, Dec 20, 2020,06:05 ELA JI MED STUDENT Dec 19, 2020 11:23 GABRIELLA GOMEZ DO Dec 20, 2020 06:08
[2020-12-19] MEDS: NS IV 1000 ML 1,000 ML IV SCH ×2 (11:59→19:16)
--- NOTE | 2020-12-19 14:11 | Cardiac Cath Report ---
CARDIAC CATHETERIZATION DATE OF PROCEDURE: 12/19/2020 INDICATION: Cardiomyopathy. HISTORY: The patient is a 55 year old male With no previously known history of coronary artery disease or cardiomyopathy. He had a several week history of increasing dyspnea on exertion. Ultimately, he was sent to the hospital for further evaluation by his primary provider. Upon arrival to the hospital, he was found to be in atrial fibrillation with a rapid ventricular rate. He subsequently underwent an echocardiogram that showed severe left ventricular systolic dysfunction. As such, further evaluation with a cardiac gosia terization was recommended. PROCEDURES PERFORMED: 1. Left heart catheterization with hemodynamic measurements. 2. Diagnostic [place] coronary angiography. 3. Drug-eluting stent placement to first diagonal branch. PROCEDURE DESCRIPTION: Left heart catheterization was performed through the right radial artery utilizing a 6 Portuguese system by percutaneous approach. Standard 5 Fr Kyle catheters were utilized for the diagnostic portion of the procedure. A 6 Portuguese EBU 3.5 guide catheter was utilized for the percutaneous intervention.All catheters were exchanged over a guidewire. RESULTS: HEMODYNAMICS: The aortic pressure was 100/67 mmHg. The left ventricular pressure was 105 over 0 mmHg with a left ventricular end-diastolic pressure of 26 mmHg. There was no significant pressure gradient upon pullback across the aortic valve.. CORONARY ANGIOGRAPHY: Left main coronary artery: Free of significant disease. Left anterior descending coronary artery: Free of significant disease but with RAZIA I flow to the apex. There was a moderate sized first diagonal branch which contained an 80% stenosis proximally with RAZIA I flow. Left circumflex coronary artery: Codominant and free of significant disease with RAZIA I flow to the distal branches. Right coronary artery: Codominant and free of significant disease but with RAZIA I flow to the distal branches. PERCUTANEOUS CORONARY INTERVENTION: Percutaneous coronary intervention was carried out on the proximal segment of the first diagonal branch through a 6 Portuguese EBU 3.5 guide catheter. The lesion was successfully crossed with a [place] guidewire. I subsequently performed coronary angioplasty with a 2.5 x 12 mm Trek balloon at a pressure of 10 dany for 2 inflations. Flow was improved. I subsequently deployed a 2.75 x 18 mm drug-eluting Xience Alpine stent at a pressure of 16 dany. Following stent placement, there was 0% residual stenosis with RAZIA II flow. IMPRESSION: 1. Normal central aortic pressure with markedly elevated left ventricular end- diastolic pressure. 2. Diffusely slow flow in all coronary arteries as outlined above. 3. There was severe disease in a moderate sized first diagonal branch. 4. Status post drug-eluting stent placement to the proximal segment of the first diagonal branch with a 2.75 x 18 mm Xience Alpine stent with 0% residual stenosis and RAZIA II flow. 5. The patient is known to have severe left ventricular systolic dysfunction with an estimated ejection fraction of 15-20% by echocardiogram performed on 12/18/2020. Certain portions of this document may have been dictated utilizing voice recognition technology. Inherent to this technology, typographical and grammatical errors may exist. As much as I am diligent to identify and correct these mistakes, some errors may remain in the document. BHARATHI ALMODOVAR JR, MD Dec 19, 2020 14:11
[2020-12-19] MEDS: APIXABAN 5 MG (ELIQUIS) TABLET PO SCH (20:15)
[2020-12-20] VITALS (24 sets, daily range): BP systolic 82–135; BP diastolic 62–112
[2020-12-20] MEDS: dilTIAZem DRIP PRE-MIX 125 ML IV SCH ×2 (03:48→15:39)
[2020-12-20 03:49] LABS: HEMOGLOBIN 15.1 g/dL (13.3-17.7); MEAN PLATELET VOLUME 11.8 fL (9.0-12.2); WHITE BLOOD COUNT 14.6 10^3/uL (4.3-11.0)
[2020-12-20] MEDS: ACETAMINOPHEN 500 MG TAB (TYLENOL) PO PRN (03:50)
[2020-12-20 04:09] LABS: CALCIUM 8.6 MG/DL (8.5-10.1)
[2020-12-20 04:13] LABS: CREATININE SERUM 0.89 MG/DL (0.60-1.30); PHOSPHORUS 3.2 MG/DL (2.3-4.7)
[2020-12-20] MEDS: KCL 20 MEQ TAB (K-DUR) PO SCH (05:21)
[2020-12-20] MEDS: NS IV 1000 ML 1,000 ML IV SCH (05:21)
[2020-12-20] MEDS: inSUlin ASPART (NovoLOG) 1 UNIT/0.01 ML (CHARGE PER UNIT) SQ SCH ×4 (05:21→20:38)
[2020-12-20] MEDS: POTASSIUM CL 10MEQ/50ML IVPB 50 ML IV SCH (05:21)
[2020-12-20] MEDS: MAGNESIUM 1 GM/100 ML IVPB 100 ML IV SCH (05:21)
[2020-12-20] MEDS: ASPIRIN E.C. 81 MG (ECOTRIN) TAB PO SCH (08:16)
[2020-12-20] MEDS: APIXABAN 5 MG (ELIQUIS) TABLET PO SCH ×2 (08:16→20:38)
[2020-12-20] MEDS: FUROSEMIDE 40 MG/4 ML INJ (LASIX) IVP SCH (08:16)
[2020-12-20] MEDS: CLOPIDOGREL 75 MG (PLAVIX) TABLET PO SCH (08:16)
[2020-12-20] MEDS: SENNA W/DOCUSATE (SENOKOT S) TABLET PO SCH ×2 (08:57→20:38)
[2020-12-20] MEDS ORDERED: ASPIRIN E.C. 81 MG (ECOTRIN) TAB PO SCH (09:00)
--- NOTE | 2020-12-20 09:21 | Cardiology Progress Note ---
Progress Note-Cardiology Events since last exam Date Seen by Provider: Dec 20, 2020 Time Seen by Provider: 08:54 Events since last exam We are seeing him due to cardiomyopathy, coronary artery disease, heart failure, and atrial fibrillation. He remains on diltiazem infusion. Last evening when he was getting ready for bed he suddenly became short of breath. His breathing is better this morning and he is up ambulating in his room. He denies chest discomfort, palpitations, syncope, or ankle edema. Certain portions of this document may have been dictated utilizing voice recognition technology. Inherent to this technology, typographical and grammatical errors may exist. As much as I am diligent to identify and correct these mistakes, some errors may remain in the document. Vitals Last set of Vitals Signs Vital Signs 12/19/20 12/20/20 12/20/20 12/20/20 14:00 06:30 07:30 08:25 Temp 36.9 Pulse 105 Resp 20 B/P (MAP) 118/76 (90) Pulse Ox 97 O2 Delivery Room Air O2 Flow Rate 6.00 Labs Labs Laboratory Tests 12/20/20 03:35 Exam Vital Signs Vital Signs Date Time Temp Pulse Resp B/P (MAP) Pulse Ox O2 Delivery O2 Flow Rate FiO2 12/20/20 08:25 97 Room Air 12/20/20 07:30 36.9 12/20/20 06:30 105 20 118/76 (90) 12/19/20 14:00 6.00 Physical Exam General: Alert. No acute distress. Eye: No xanthelasma. HENT: Normocephalic. Neck: Jugular venous pressure does not appear elevated. Respiratory: Lungs are clear to auscultation. Respirations are non-labored. Breath sounds are equal. Symmetrical chest wall expansion. Cardiovascular: Tachycardia with irregular rhythm. No murmur. No gallop. No edema. Gastrointestinal: Soft. Normal bowel sounds. Skin: Warm. Dry. Neurologic: Alert and oriented to person, place, time. Cranial nerves 3-11 grossly intact. Psychiatric: Cooperative. Appropriate mood & affect. Labs Laboratory Tests Test 12/19/20 10:50 12/19/20 15:35 12/19/20 20:15 12/20/20 03:35 Range/Units Glucometer 173 H 200 H 153 H 70-110 MG/DL White Blood Count 14.6 H 4.3-11.0 10^3/uL Red Blood Count 5.09 4.30-5.52 10^6/uL Hemoglobin 15.1 13.3-17.7 g/dL Hematocrit 45 40-54 % Mean Corpuscular Volume 89 80-99 fL Mean Corpuscular Hemoglobin 30 25-34 pg Mean Corpuscular Hemoglobin Concent 34 32-36 g/dL Red Cell Distribution Width 13.4 10.0-14.5 % Platelet Count 137 130-400 10^3/uL Mean Platelet Volume 11.8 9.0-12.2 fL Percent Immature Platelet Fraction 7.1 0.0-7.6 % Sodium Level 135 135-145 MMOL/L Potassium Level 4.0 3.6-5.0 MMOL/L Chloride Level 98 98-107 MMOL/L Carbon Dioxide Level 24 21-32 MMOL/L Anion Gap 13 5-14 MMOL/L Blood Urea Nitrogen 24 H 7-18 MG/DL Creatinine 0.89 0.60-1.30 MG/DL Estimat Glomerular Filtration Rate 89 BUN/Creatinine Ratio 27 Glucose Level 140 H 70-105 MG/DL Calcium Level 8.6 8.5-10.1 MG/DL Phosphorus Level 3.2 2.3-4.7 MG/DL Magnesium Level 2.0 1.6-2.4 MG/DL Diagnosis/Problems Diagnosis/Problems (1) Paroxysmal atrial fibrillation Assessment & Plan: He has atrial fibrillation with rapid ventricular rate. Exact duration unknown since the patient seems to be asymptomatic with this. He does not have significant atrial enlargement on his echocardiogram which suggests that this may be a relatively new finding. Ultimately, he will need anticoagulation for 30 days and then we can consider a cardioversion at that time. For the time being, we will continue IV diltiazem for rate control. I have added oral beta-darline and I will titrate up the dose. Given that he also has severe left ventricular systolic dysfunction, it is unclear whether the cardiomyopathy led to the atrial fibrillation or if the atrial fibrillation led to the tachycardia. If we cannot get his heart rate under control on oral medication by tomorrow and get him off the IV diltiazem, then I may need to consider transesophageal echocardiogram and cardioversion. I have started him on apixaban for stroke prophylaxis. (2) Acute systolic heart failure Assessment & Plan: We will continue IV Lasix and metoprolol succinate. I will titrate up the dose of metoprolol as tolerated by his blood pressure. He is ordered for chest x-ray later today. I will hold off on adding SANTY inhibitor or ARB so that we can give him a higher dose of beta-darline to help get his heart rate down. (3) Non-ST elevation myocardial infarction (NSTEMI), initial care episode Assessment & Plan: He did have a small troponin leak. This is consistent with a type II non-ST elevation myocardial infarction related to supply/demand mismatch from the acute heart failure and tachycardia from the atrial fibr illation. We will proceed as above. Because of the drug-eluting stent that placed in his diagonal branch, I have him on aspirin and clopidogrel. We will keep him on triple antiplatelet/anticoagulant therapy until discharge. At the time of discharge, he will be discharged on combination of clopidogrel and apixaban without aspirin. (4) Cardiomyopathy Assessment & Plan: He has severe left ventricular systolic dysfunction of undetermined etiology. As above, this could be tachycardia mediated cardiomyopathy related to undiagnosed/newly diagnosed atrial fibrillation. Although he did require one coronary stent, this was not a branch of the left anterior descending coronary artery. As such, this is not ischemic cardiomyopathy. Nonetheless, given his low ejection fraction, he is at risk for sudden cardiac . I will get him set up for a LifeVest prior to discharge. (5) Essential hypertension Assessment & Plan: I will titrate up the metoprolol succinate for his atrial fibrillation and heart failure. I will hold off on restarting losartan until we can get his heart rate under control. (6) Type 2 diabetes mellitus with complication Assessment & Plan: His primary provider will be managing this condition. He may benefit from a SGLT2 inhibitor in the long run. (7) Mixed hyperlipidemia Assessment & Plan: Continue intensive dose statin in light of the myocardial infarction. BHARATHI ALMODOVAR JR, MD Dec 20, 2020 09:21
--- NOTE | 2020-12-20 09:34 | Tele-ICU Progress Note ---
Subjective Date Seen by a Provider: Dec 20, 2020 Time Seen by a Provider: 12:00 Subjective/Events-last exam In ICU For a fib, on Eliquis, Metoprolol and IV Cardizem @ 10, to get DAYNA in am went to CCL found to have severe disease in 1 st diagnoal branch,, LINDEN placed VS ok Sepsis Event Evaluation Height, Weight, BMI Height: 5'11.00" Weight: 220lbs. 0.0oz. 99.122760hw; 28.87 BMI Method: Focused Exam Lactate Level 12/18/20 12:55: Lactic Acid Level 1.17 Exam Exam Patient acknowledged, consented, and participated in this virtual visit which was conducted using real time audio/video Vital Signs Date Time Temp Pulse Resp B/P (MAP) Pulse Ox O2 Delivery O2 Flow Rate FiO2 12/20/20 08:25 97 Room Air 12/20/20 07:30 36.9 12/20/20 06:30 105 20 118/76 (90) 89 Room Air 12/20/20 05:00 120 25 88/73 (78) 93 Room Air 12/20/20 04:15 111 16 105/70 (82) 96 Room Air 12/20/20 03:53 Room Air 12/20/20 03:51 36.9 12/20/20 03:30 113 9 94/79 (84) 91 Room Air 12/20/20 02:00 117 26 98/88 (91) 96 Room Air 12/20/20 01:00 92 20 111/77 (88) 94 Room Air 12/20/20 01:00 92 12/20/20 00:00 124 13 105/78 (87) 91 Room Air 12/20/20 00:00 36.4 12/20/20 00:00 Room Air 12/19/20 23:00 126 24 100/87 (91) 90 Room Air 12/19/20 22:00 113 26 109/74 (86) 94 Room Air 12/19/20 21:30 115 12 108/80 (89) 99 Room Air 12/19/20 20:15 110 29 111/86 (94) 95 Room Air 12/19/20 20:00 Room Air 12/19/20 19:10 36.2 12/19/20 19:07 93 26 96/84 (88) 96 Room Air 12/19/20 19:00 105 22 96 Room Air 12/19/20 19:00 105 12/19/20 18:00 85 23 93/82 (86) 94 Room Air 12/19/20 17:00 116 6 111/96 (101) 96 Room Air 12/19/20 16:08 36.6 12/19/20 16:00 99 25 120/77 (91) 93 Room Air 12/19/20 15:55 Room Air 12/19/20 15:00 112 24 109/68 (82) 93 Room Air 12/19/20 14:22 Room Air 12/19/20 14:00 96 8 83/38 (53) 92 Nasal Cannula 6.00 12/19/20 13:00 96 21 87/72 (77) 95 Nasal Cannula 6.00 12/19/20 13:00 102 12/19/20 12:03 36.3 12/19/20 12:00 121 32 98/80 (86) 88 Nasal Cannula 6.00 12/19/20 12:00 Room Air 12/19/20 11:00 117 21 98/74 (82) 91 Nasal Cannula 6.00 12/19/20 10:00 123 26 101/73 (82) 89 Nasal Cannula 6.00 I & O 12/20/20 07:00 Intake Total 2325 ml Output Total 3225 ml Balance -900 ml Height & Weight Height: 5'11.00" Weight: 220lbs. 0.0oz. [id number]; 28.87 BMI Method: General Appearance: WD/WN, Anxious, Chronically ill HEENT: PERRL/EOMI, Normal ENT Inspection, Pharynx Normal Neck: Full Range of Motion, Normal Inspection, Non Tender, Supple, Carotid Bruit Respiratory: Chest Non Tender, Lungs Clear, Normal Breath Sounds, No Accessory Muscle Use, No Respiratory Distress, Decreased Breath Sounds Cardiovascular: Regular Rate, Rhythm, No Edema, No Gallop, No JVD, No Murmur, Normal Peripheral Pulses, Irregularly Irregular Capillary Refill: Less Than 3 Seconds Gastrointestinal: normal bowel sounds, non tender, soft Extremity: Normal Capillary Refill, Normal Inspection, Normal Range of Motion, Non Tender, No Calf Tenderness, No Pedal Edema, Pedal Edema Neurologic/Psychiatric: Alert, Oriented x3, No Motor/Sensory Deficits, Normal Mood/Affect Skin: Normal Color, Warm/Dry Lymphatic: No Adenopathy Results Lab Laboratory Tests 12/18/20 12:55 12/19/20 03:13 12/20/20 03:35 Assessment/Plan Assessment/Plan afib RVR - cardizem gtt, also on metoprolol, plan is to wean off cardizem, to get DAYNA in am -cards consulted , - CTA did not show pulm emb, trace pleural effusion Critical Care: Critically Ill Patient Time spent with patient (mins): 20 TRAY GARCIA MD Dec 20, 2020 09:34
--- NOTE | 2020-12-20 10:52 | Diagnostic Imaging Report ---
INDICATION: Hypoxemia Portable chest 10:10 AM Heart size and pulmonary vascularity are normal. Lungs are clear. There are no effusions or pneumothoraces. IMPRESSION: No acute abnormalities in the chest. Dictated by: Dictated on workstation # [id number]
--- NOTE | 2020-12-20 12:02 | Progress Note ---
ELA JI MED STUDENT 12/20/20 1202: Subjective Date Seen by a Provider: Dec 20, 2020 Time Seen by a Provider: 07:45 Subjective/Events-last exam Patient reports sleeping better overnight. Had a few episodes of PND overnight but less than he's been having over the past few weeks. Tolerated RA overnight and maintained sat's well. Denies chest pain, headache, nausea, vomiting, fevers, and chills. Reports feeling better than yesterday. No complaints currently. Review of Systems General: No Chills, No Night Sweats, No Fatigue HEENT: No Head Aches, No Visual Changes Pulmonary: Dyspnea (mildly improved from yesterday); No Cough, No Pleuritic Chest Pain Cardiovascular: Paroxysmal Noc. Dyspnea (intermittently worse over night); No: Chest Pain, Palpitations, Edema, Lt Headedness Gastrointestinal: No: Nausea, Vomiting, Abdominal Pain Genitourinary: No Dysuria, No Frequency Musculoskeletal: No: neck pain, back pain Neurological: No: Weakness, Numbness Focused Exam Lactate Level 12/18/20 12:55: Lactic Acid Level 1.17 Objective Exam Last Set of Vital Signs Vital Signs Date Time Temp Pulse Resp B/P (MAP) Pulse Ox O2 Delivery O2 Flow Rate FiO2 12/20/20 11:21 97 Room Air 12/20/20 10:00 112 31 103/86 (92) 12/20/20 07:30 36.9 12/19/20 14:00 6.00 Capillary Refill : Less Than 3 Seconds I&O Intake and Output 12/20/20 00:00 Intake Total 2025 ml Output Total 2825 ml Balance -800 ml Intake Oral 1900 ml IV Total 125 ml Output Urine Total 2825 ml General: Alert, Oriented X3, Cooperative, No Acute Distress HEENT: Atraumatic, PERRLA, EOMI Neck: Supple, No Thyromegaly, No LAD Lungs: Clear to Auscultation, Normal Air Movement Heart: Other (Monitor continues to show afib) Abdomen: Normal Bowel Sounds, Soft, No Tenderness, No Masses Extremities: No Clubbing, No Cyanosis, No Edema, Normal Pulses, No Tenderness /Swelling Skin: No Rashes, No Breakdown Neuro: Normal Speech, Normal Tone, Sensation Intact Psych/Mental Status: Mental Status NL, Mood NL Results Lab Laboratory Tests 12/19/20 15:35: Glucometer 200H 12/19/20 20:15: Glucometer 153H 12/20/20 03:35: White Blood Count 14.6H, Red Blood Count 5.09, Hemoglobin 15.1, Hematocrit 45, Mean Corpuscular Volume 89, Mean Corpuscular Hemoglobin 30, Mean Corpuscular Hemoglobin Concent 34, Red Cell Distribution Width 13.4, Platelet Count 137, Mean Platelet Volume 11.8, Percent Immature Platelet Fraction 7.1, Sodium Level 135, Potassium Level 4.0, Chloride Level 98, Carbon Dioxide Level 24, Anion Gap 13, Blood Urea Nitrogen 24H, Creatinine 0.89, Estimat Glomerular Filtration Rate 89, BUN/Creatinine Ratio 27, Glucose Level 140H, Calcium Level 8.6, Phosphorus Level 3.2, Magnesium Level 2.0 12/20/20 10:48: Glucometer 180H Microbiology 12/18/20 MRSA Screen - Final, Complete MRSA not isolated 12/18/20 Blood Culture - Preliminary, Resulted No growth Assessment/Plan Assessment/Plan Assess & Plan/Chief Complaint Dyspnea- marginally improved from yesterday -Titrate O2 to keep O2 sats > 90% -Encourage cough and deep breathing -sleep with HOB elevated NSTEMI type 2 -followed by cardiology -continue to monitor New onset atrial fibrillation with rapid ventricular response -cardiology following -cardizem gtt per cardiology -Continue cardiac monitoring -continue eliquis -cardiology planning possible DAYNA/cardioversion in near future Acute systolic heart failure - Continue recommendations per cardiology -continue IVP lasix --EF 15-20% via TTE 12/18/20 Cardiomyopathy - Continue recommendations per cardiology CAD -Status post cardiac cath 12/19/2020 with drug eluting stent placed to the first diagonal branch -continue aspirin and plavix GI PPX -add protonix Elevated BNP -continue to monitor Elevated Troponin -trended down -continue to monitor Elevated D-dimer -continue to monitor as necessary Former smoker quit 1 month ago -encouraged continued abstinence Diabetes mellitus -continue SSI and accucheck achs Hypertension -Continue metoprolol In denial about medical issues GABRIELLA GOMEZ DO 12/20/202124: Subjective Subjective/Events-last exam Pt doing a little better Odilon sosa still on board Will perform DAYNA tomorrow to check for thrombosis and then electrocardioversion Labs okay Lasix 80 mg IV has helped him CXR will be ordered had actually gotten up to turn down the oxygen and I told her not to do that, and I told the nurse what she had done Pt and just dont seem to understand his issues and I tried to explain it, and Dr. Greenfield tries to explain it but very difficult to absorb that information, he appears to be in significant denial of which he has been in allyssa al about his DM and HTN for years He continued to smoke until four weeks ago after multiple attempts to patient financial counselor him on cessation Review of Systems General: Fatigue Pulmonary: Dyspnea (mildly improved from yesterday) Objective Exam General: Alert, Oriented X3, Cooperative, No Acute Distress Lungs: Clear to Auscultation Heart: Other (Monitor continues to show afib) Neuro: Normal Speech Psych/Mental Status: Mental Status NL Assessment/Plan Assessment/Plan Assess & Plan/Chief Complaint Improved but critical DAYNA tomorrow with cardioversion Supervisory-Addendum Brief Verification & Attestation Participated in pt care: history, MDM, physical Personally performed: exam, history, MDM, supervision of care Care discussed with: Medical Student Procedures: n/a Results interpretation: Verified all documentation Verification and Attestation of Medical Student E/M Service A medical student performed and documented this service in my presence. I reviewed and verified all information documented by the medical student and made modifications to such information, when appropriate. I personally performed the physical exam and medical decision making. Gabriella Gomez, Dec 20, 2020,21:23 ELA JI MED STUDENT Dec 20, 2020 12:02 GABRIELLA GOMEZ DO Dec 20, 2020 21:25
[2020-12-20] MEDS ORDERED: ACETAMINOPHEN 325 MG TABLET PO PRN (15:00)
[2020-12-21] VITALS (24 sets, daily range): BP systolic 78–121; BP diastolic 46–108
[2020-12-21 03:35] LABS: POTASSIUM 3.9 MMOL/L (3.6-5.0)
[2020-12-21 03:37] LABS: CALCIUM 8.5 MG/DL (8.5-10.1)
[2020-12-21 03:41] LABS: CREATININE SERUM 0.89 MG/DL (0.60-1.30); PHOSPHORUS 3.6 MG/DL (2.3-4.7)
[2020-12-21 03:44] LABS: MAGNESIUM 2.1 MG/DL (1.6-2.4)
[2020-12-21] MEDS: dilTIAZem DRIP PRE-MIX 125 ML IV SCH ×2 (05:13→17:04)
[2020-12-21] MEDS: POTASSIUM CL 10MEQ/50ML IVPB 50 ML IV SCH (05:37)
[2020-12-21] MEDS: inSUlin ASPART (NovoLOG) 1 UNIT/0.01 ML (CHARGE PER UNIT) SQ SCH ×4 (05:37→21:15)
[2020-12-21] MEDS: KCL 20 MEQ TAB (K-DUR) PO SCH (05:37)
[2020-12-21] MEDS: MAGNESIUM 1 GM/100 ML IVPB 100 ML IV SCH (05:37)
[2020-12-21 06:08] LABS: BASOPHILS # (AUTO) 0.1 10^3/uL (0.0-0.1); BASOPHILS % (AUTO) 1 % (0-10); EOSINOPHILS # (AUTO) 0.2 10^3/uL (0.0-0.3); EOSINOPHILS % (AUTO) 2 % (0-10); HEMATOCRIT 45 % (40-54); LYMPHOCYTES # (AUTO) 2.6 10^3/uL (1.0-4.0); LYMPHOCYTES % (AUTO) 23 % (12-44); MEAN CORPUSCULAR HEMOGLOBIN 30 pg (25-34); MEAN CORPUSCULAR HGB CONC 33 g/dL (32-36); MEAN CORPUSCULAR VOLUME 91 fL (80-99); MEAN PLATELET VOLUME 12.4 fL (9.0-12.2); MONOCYTES # (AUTO) 1.1 10^3/uL (0.0-1.0); MONOCYTES % (AUTO) 10 % (0-12); NEUTROPHILS # (AUTO) 7.6 10^3/uL (1.8-7.8); NEUTROPHILS % (AUTO) 65 % (42-75); PLATELET COUNT 132 10^3/uL (130-400); WHITE BLOOD COUNT 11.6 10^3/uL (4.3-11.0)
[2020-12-21] MEDS: ASPIRIN E.C. 81 MG (ECOTRIN) TAB PO SCH (08:24)
[2020-12-21] MEDS: APIXABAN 5 MG (ELIQUIS) TABLET PO SCH ×2 (08:24→21:14)
[2020-12-21] MEDS: CLOPIDOGREL 75 MG (PLAVIX) TABLET PO SCH (08:24)
[2020-12-21] MEDS: SENNA W/DOCUSATE (SENOKOT S) TABLET PO SCH ×2 (08:25→21:13)
[2020-12-21] MEDS ORDERED: meTOproloL SUCCINATE 50 MG (TOPROL XL) TAB PO SCH (09:00)
[2020-12-21] MEDS: FUROSEMIDE 40 MG/4 ML INJ (LASIX) IVP SCH (09:22)
--- NOTE | 2020-12-21 09:33 | Tele-ICU Progress Note ---
Subjective Date Seen by a Provider: Dec 21, 2020 Time Seen by a Provider: 11:00 Subjective/Events-last exam In ICU For a fib, on Eliquis, Metoprolol and was on IV Cardizem @ 10 now held, to get DAYNA in am, potential cardioversion went to CCL found to have severe disease in 1 st diagnoal branch,, LINDEN placed VS ok On Plavix, Lasix-held due to drop in BP Lopressor, Eliquis, ASA Sepsis Event Evaluation Height, Weight, BMI Height: 5'11.00" Weight: 220lbs. 0.0oz. [id number]; 28.87 BMI Method: Focused Exam Lactate Level 12/18/20 12:55: Lactic Acid Level 1.17 Exam Exam Patient acknowledged, consented, and participated in this virtual visit which was conducted using real time audio/video Vital Signs Date Time Temp Pulse Resp B/P (MAP) Pulse Ox O2 Delivery O2 Flow Rate FiO2 12/21/20 07:52 97 Room Air 12/21/20 07:30 36.6 12/21/20 06:00 135 20 81/64 (70) 96 Nasal Cannula 2.00 12/21/20 05:00 120 18 118/108 (111) 94 Nasal Cannula 2.00 12/21/20 04:00 36.6 12/21/20 04:00 96 Room Air 12/21/20 04:00 111 21 94/65 (75) 95 Nasal Cannula 2.00 12/21/20 03:00 115 18 93/80 (84) 94 Nasal Cannula 2.00 12/21/20 02:00 105 18 84/72 (76) 98 Nasal Cannula 2.00 12/21/20 01:00 130 12/21/20 01:00 113 24 85/59 (68) 93 Nasal Cannula 2.00 12/21/20 00:09 96 Room Air 12/21/20 00:00 36.3 12/21/20 00:00 137 27 78/46 (57) 90 Nasal Cannula 2.00 12/20/20 23:00 118 19 96/85 (89) 94 Nasal Cannula 2.00 12/20/20 22:00 117 19 124/85 (98) 92 Nasal Cannula 2.00 12/20/20 21:00 117 15 132/95 (107) 94 Nasal Cannula 2.00 12/20/20 20:00 96 Room Air 12/20/20 20:00 105 15 109/82 (91) 94 Nasal Cannula 2.00 12/20/20 19:37 36.5 12/20/20 19:00 110 12/20/20 19:00 107 26 119/88 (98) 92 Nasal Cannula 2.00 12/20/20 18:00 111 28 114/91 (99) 94 Nasal Cannula 2.00 12/20/20 17:00 112 12 119/75 (90) 94 Nasal Cannula 2.00 12/20/20 16:49 Nasal Cannula 2.00 12/20/20 16:00 105 18 108/88 (95) 96 Nasal Cannula 2.00 12/20/20 15:49 96 Room Air 12/20/20 15:41 36.7 12/20/20 15:00 108 30 106/69 (81) 97 Nasal Cannula 2.00 12/20/20 14:00 104 21 82/67 (72) 94 Nasal Cannula 2.00 12/20/20 13:27 Nasal Cannula 2.00 12/20/20 13:00 98 25 91/62 (72) 88 Room Air 12/20/20 12:45 121 12/20/20 12:00 118 24 115/94 (101) 91 Room Air 12/20/20 12:00 36.4 12/20/20 11:21 97 Room Air 12/20/20 11:00 105 21 112/89 (97) 91 Room Air 12/20/20 10:00 112 31 103/86 (92) 89 Room Air I & O 12/21/20 07:00 Intake Total 2225 ml Output Total 3225 ml Balance -1000 ml Height & Weight Height: 5'11.00" Weight: 220lbs. 0.0oz. [id number]; 28.87 BMI Method: General Appearance: No Apparent Distress, WD/WN, Anxious, Chronically ill HEENT: PERRL/EOMI, Normal ENT Inspection, Pharynx Normal Neck: Full Range of Motion, Normal Inspection, Non Tender, Supple, Carotid Bruit Respiratory: Chest Non Tender, Lungs Clear, Normal Breath Sounds, No Accessory Muscle Use, No Respiratory Distress, Decreased Breath Sounds Cardiovascular: Regular Rate, Rhythm, No Edema, No Gallop, No JVD, No Murmur, Normal Peripheral Pulses, Irregularly Irregular, Tachycardia Capillary Refill: Less Than 3 Seconds Gastrointestinal: normal bowel sounds, non tender, soft Extremity: Normal Capillary Refill, Normal Inspection, Normal Range of Motion, Non Tender, No Calf Tenderness, No Pedal Edema, Pedal Edema, Other (tr edema) Neurologic/Psychiatric: Alert, Oriented x3, No Motor/Sensory Deficits, Normal Mood/Affect Skin: Normal Color, Warm/Dry Lymphatic: No Adenopathy Results Lab Laboratory Tests 12/20/20 03:35 12/21/20 03:00 Assessment/Plan Assessment/Plan DAYNA in am, possible cardioversion continue cardiac meds monitor BP has been on low side LVEF 15-20% to get Lifevest tomorrow Critical Care: Critically Ill Patient Time spent with patient (mins): 20 TRAY GARCIA MD Dec 21, 2020 09:33
--- NOTE | 2020-12-21 10:52 | Cardiology Progress Note ---
Progress Note-Cardiology Events since last exam Date Seen by Provider: Dec 21, 2020 Time Seen by Provider: 10:47 Events since last exam I am seeing him due to acute systolic heart failure secondary to nonischemic cardiomyopathy, NSTEMI now status post drug-eluting stent placement to a diagonal branch and new onset paroxysmal atrial fibrillation. Late yesterday afternoon I stopped his diltiazem. In the early evening he developed recurrent tachycardia and was placed back on diltiazem. This morning the IV diltiazem was discontinued and he was given his morning dose of metoprolol. The Lasix was held due to low blood pressure. He states he feels good and just wants to go home. He is frustrated with his diagnoses and the uncertainty of his future. He denies chest discomfort, dyspnea, palpitations, syncope, or ankle edema. Certain portions of this document may have been dictated utilizing voice jason gnition technology. Inherent to this technology, typographical and grammatical errors may exist. As much as I am diligent to identify and correct these mistakes, some errors may remain in the document. Vitals Last set of Vitals Signs Vital Signs 12/21/20 12/21/20 12/21/20 12/21/20 06:00 06:50 07:30 07:52 Temp 36.6 Pulse 130 Resp 20 B/P (MAP) 81/64 (70) Pulse Ox 97 O2 Delivery Room Air O2 Flow Rate 2.00 Labs Labs Laboratory Tests 12/21/20 03:00 Exam Vital Signs Vital Signs Date Time Temp Pulse Resp B/P (MAP) Pulse Ox O2 Delivery O2 Flow Rate FiO2 12/21/20 07:52 97 Room Air 12/21/20 07:30 36.6 12/21/20 06:50 130 12/21/20 06:00 20 81/64 (70) 2.00 Physical Exam General: Alert. No acute distress. Eye: No xanthelasma. HENT: Normocephalic. Neck: Jugular venous pressure does not appear elevated. Respiratory: Lungs are clear to auscultation. Respirations are non-labored. Breath sounds are equal. Symmetrical chest wall expansion. Cardiovascular: Tachycardia with irregular rhythm. No murmur. No gallop. No edema. Gastrointestinal: Soft. Normal bowel sounds. Skin: Warm. Dry. Neurologic: Alert and oriented to person, place, time. Cranial nerves 3-11 grossly intact. Psychiatric: Cooperative. Appropriate mood & affect. Labs Laboratory Tests Test 12/20/20 10:48 12/20/20 15:30 12/20/20 20:35 12/21/20 03:00 Range/Units Glucometer 180 H 176 H 218 H 70-110 MG/DL White Blood Count 11.6 H 4.3-11.0 10^3/uL Red Blood Count 4.95 4.30-5.52 10^6/uL Hemoglobin 15.0 13.3-17.7 g/dL Hematocrit 45 40-54 % Mean Corpuscular Volume 91 80-99 fL Mean Corpuscular Hemoglobin 30 25-34 pg Mean Corpuscular Hemoglobin Concent 33 32-36 g/dL Red Cell Distribution Width 13.4 10.0-14.5 % Platelet Count 132 130-400 10^3/uL Mean Platelet Volume 12.4 H 9.0-12.2 fL Immature Granulocyte % (Auto) 0 % Neutrophils (%) (Auto) 65 42-75 % Lymphocytes (%) (Auto) 23 12-44 % Monocytes (%) (Auto) 10 0-12 % Eosinophils (%) (Auto) 2 0-10 % Basophils (%) (Auto) 1 0-10 % Neutrophils # (Auto) 7.6 1.8-7.8 10^3/uL Lymphocytes # (Auto) 2.6 1.0-4.0 10^3/uL Monocytes # (Auto) 1.1 H 0.0-1.0 10^3/uL Eosinophils # (Auto) 0.2 0.0-0.3 10^3/uL Basophils # (Auto) 0.1 0.0-0.1 10^3/uL Immature Granulocyte # (Auto) 0.1 0.0-0.1 10^3/uL Sodium Level 138 135-145 MMOL/L Potassium Level 3.9 3.6-5.0 MMOL/L Chloride Level 101 98-107 MMOL/L Carbon Dioxide Level 25 21-32 MMOL/L Anion Gap 12 5-14 MMOL/L Blood Urea Nitrogen 26 H 7-18 MG/DL Creatinine 0.89 0.60-1.30 MG/DL Estimat Glomerular Filtration Rate 89 BUN/Creatinine Ratio 29 Glucose Level 106 H 70-105 MG/DL Calcium Level 8.5 8.5-10.1 MG/DL Phosphorus Level 3.6 2.3-4.7 MG/DL Magnesium Level 2.1 1.6-2.4 MG/DL Diagnosis/Problems Diagnosis/Problems (1) Paroxysmal atrial fibrillation Assessment & Plan: He remains in atrial fibrillation with a rapid ventricular rate. I will change his metoprolol succinate over to 50 mg twice a day. We could try Ivabradine but this often will not control heart rate with atrial fibrillation. Hopefully, we can get his heart rate under control later today. However, if we are not successful, then he will need a transesophageal echocard iogram and possible cardioversion tomorrow. We will continue apixaban for stroke prophylaxis.If the transesophageal echocardiogram shows a left atrial thrombus, then we will not be able to perform a cardioversion and we will need to do our best to get his heart rate under control so he can be discharged home and have a cardioversion in approximately 30 days. (2) Acute systolic heart failure Assessment & Plan: Chest x-ray from 12/20 was clear.He is not short of breath. I will titrate up the metoprolol succinate as above. He is not currently a candidate for the other guideline directed medications due to low blood pressure. (3) Non-ST elevation myocardial infarction (NSTEMI), initial care episode Assessment & Plan: He did have a small troponin leak. This is consistent with a type II non-ST elevation myocardial infarction related to supply/demand mismatch from the acute heart failure and tachycardia from the atrial fibrillation. We will proceed as above. Because of the drug-eluting stent that I placed in his diagonal branch, I have him on aspirin and clopidogrel. We will keep him on triple antiplatelet/anticoagulant therapy until discharge. At the time of discharge, he will be discharged on combination of clopidogrel and apixaban without aspirin. (4) Cardiomyopathy Assessment & Plan: He has severe left ventricular systolic dysfunction of undetermined etiology. As above, this could be tachycardia mediated cardiomyopathy related to undiagnosed/newly diagnosed atrial fibrillation. Although he did require one coronary stent, this was a branch of the left anterior descending coronary artery. As such, this is not ischemic cardiomyopathy. Nonetheless, given his low ejection fraction, he is at risk for sudden cardiac . I will get him set up for a LifeVest prior to discharge. The company textile machinery sales representative should be coming tomorrow to fit him for the LifeVest. (5) Essential hypertension Assessment & Plan: I will titrate up the metoprolol succinate for his atrial fibrillation and heart failure as outlined above. I will hold off on restarting losartan until we can get his heart rate under control. (6) Type 2 diabetes mellitus with complication Assessment & Plan: His primary provider will be managing this condition. He may benefit from a SGLT2 inhibitor in the long run. (7) Mixed hyperlipidemia Assessment & Plan: Continue intensive dose statin in light of the myocardial infarction. BHARATHI ALMODOVAR JR, MD Dec 21, 2020 10:52
[2020-12-21 10:56] LABS: ALBUMIN 3.4 GM/DL (3.2-4.5); BILIRUBIN,DIRECT 0.5 MG/DL (0.0-0.3); BILIRUBIN,INDIRECT 0.9 MG/DL; BILIRUBIN,TOTAL 1.4 MG/DL (0.1-1.0)
--- NOTE | 2020-12-21 11:30 | Progress Note ---
HANG PENALOZA 12/21/20 1130: Subjective Date Seen by a Provider: Dec 21, 2020 Time Seen by a Provider: 10:30 Subjective/Events-last exam Patient is frustrated and angry, but otherwise NAD. Last bowel movement at 5:45. Denies chest pain, SOA, fever, chills, vomiting, nor diarrhea. On exam heart beat soft and irregular. Tibial and dorsalis pedis pulses absent bilaterally. No LE edema bilaterally. Lungs CTAB. Vitals significant for high heart rate and low blood pressure (81/64). DAYNA with cardioversion to be performed tomorrow with Dr. Greenfield. Review of Systems General: No Chills, No Night Sweats; Appetite HEENT: No Head Aches, No Visual Changes, No Ear Pain Pulmonary: No Dyspnea, No Cough Cardiovascular: No: Chest Pain, Edema, Lt Headedness Gastrointestinal: No: Nausea, Vomiting, Diarrhea Genitourinary: No Dysuria, No Incontinence, No Hematuria Musculoskeletal: No: neck pain, shoulder pain, arm pain Neurological: No: Change in speech, Confusion, Seizures Focused Exam Lactate Level 12/18/20 12:55: Lactic Acid Level 1.17 Objective Exam Last Set of Vital Signs Vital Signs Date Time Temp Pulse Resp B/P (MAP) Pulse Ox O2 Delivery O2 Flow Rate FiO2 12/21/20 07:52 97 Room Air 12/21/20 07:30 36.6 12/21/20 06:50 130 12/21/20 06:00 20 81/64 (70) 2.00 Capillary Refill : Less Than 3 Seconds I&O Intake and Output 12/21/20 00:00 Intake Total 2000 ml Output Total 2675 ml Balance -675 ml Intake Oral 2000 ml Output Urine Total 2675 ml # Bowel Movements 1 General: Alert, Oriented X3, Cooperative HEENT: Atraumatic Neck: No Thyromegaly Lungs: Clear to Auscultation, Normal Air Movement Abdomen: Soft, No Tenderness Extremities: No Cyanosis, No Edema Skin: No Rashes, No Significant Lesion Neuro: Normal Speech, Cranial Nerves 3-12 NL (grossly intact) Psych/Mental Status: Mental Status NL Results Lab Laboratory Tests 12/20/20 15:30: Glucometer 176H 12/20/20 20:35: Glucometer 218H 12/21/20 03:00: White Blood Count 11.6H, Red Blood Count 4.95, Hemoglobin 15.0, Hematocrit 45, Mean Corpuscular Volume 91, Mean Corpuscular Hemoglobin 30, Mean Corpuscular Hemoglobin Concent 33, Red Cell Distribution Width 13.4, Platelet Count 132, Mean Platelet Volume 12.4H, Immature Granulocyte % (Auto) 0, Neutrophils (%) (Auto) 65, Lymphocytes (%) (Auto) 23, Monocytes (%) (Auto) 10, Eosinophils (%) (Auto) 2, Basophils (%) (Auto) 1, Neutrophils # (Auto) 7.6, Lymphocytes # (Auto) 2.6, Monocytes # (Auto) 1.1H, Eosinophils # (Auto) 0.2, Basophils # (Auto) 0.1, Immature Granulocyte # (Auto) 0.1, Sodium Level 138, Potassium Level 3.9, Chloride Level 101, Carbon Dioxide Level 25, Anion Gap 12, Blood Urea Nitrogen 26H, Creatinine 0.89, Estimat Glomerular Filtration Rate 89, BUN/Creatinine Ratio 29, Glucose Level 106H, Calcium Level 8.5, Phosphorus Level 3.6, Magnesium Level 2.1, Total Bilirubin 1.4H, Direct Bilirubin 0.5H, Indirect Bilirubin 0.9, Aspartate Amino Transf (AST/SGOT) 30, Alanine Aminotransferase (ALT/SGPT) 31, Alkaline Phosphatase 74, Total Protein 6.0L, Albumin 3.4 12/21/20 10:56: Glucometer 151H Microbiology 12/18/20 MRSA Screen - Final, Complete MRSA not isolated 12/18/20 Blood Culture - Preliminary, Resulted No growth Assessment/Plan Assessment/Plan Assess & Plan/Chief Complaint Dyspnea- significantly improved from yesterday -Titrate O2 to keep O2 sats > 90% -Encourage cough and deep breathing -sleep with HOB elevated NSTEMI type 2 -followed by cardiology -continue to monitor New onset atrial fibrillation with rapid ventricular response -cardiology following -cardizem gtt per cardiology -Continue cardiac monitoring -continue eliquis -cardiology planning possible DAYNA/cardioversion tomorrow with Dr. Greenfield (12/22/2020) Acute systolic heart failure - Continue recommendations per cardiology -continue IVP lasix --EF 15-20% via TTE 12/18/20 Cardiomyopathy - Continue recommendations per cardiology CAD -Status post cardiac cath 12/19/2020 with drug eluting stent placed to the first diagonal branch -continue aspirin and plavix GI PPX -add protonix Elevated BNP -continue to monitor Elevated Troponin -trended down -continue to monitor Elevated D-dimer -continue to monitor as necessary Former smoker quit 1 month ago -encouraged continued abstinence Diabetes mellitus -continue SSI and accucheck achs Hypertension -Continue metoprolol In denial about medical issues GABRIELLA GOMEZ DO 12/22/20 0643: Subjective Subjective/Events-last exam Pt having some difficulty Remains with AF with RVR Cardizem drip is limited due to hypotension Trying to initiate Metoprolol for rate control Eliquis maintained for stroke prophylaxis No SOB Pt with very difficult personality and he is very difficult to reassure Review of Systems General: Fatigue Pulmonary: Dyspnea Objective Exam General: Alert, Oriented X3, Cooperative, No Acute Distress Lungs: Clear to Auscultation Heart: Other (Tachycardic and irregular) Assessment/Plan Assessment/Plan Assess & Plan/Chief Complaint Supportive care Tried to reassure Supervisory-Addendum Brief Verification & Attestation Participated in pt care: history, MDM, physical Personally performed: exam, history, MDM, supervision of care Care discussed with: Medical Student Procedures: n/a Results interpretation: Verified all documentation Verification and Attestation of Medical Student E/M Service A medical student performed and documented this service in my presence. I reviewed and verified all information documented by the medical student and made modifications to such information, when appropriate. I personally performed the physical exam and medical decision making. Gabriella Gomez Dec 22, 2020,06:41 HANG PENALOZA Dec 21, 2020 11:30 GABRIELLA GOMEZ DO Dec 22, 2020 06:43
[2020-12-21] MEDS: GLIMEPIRIDE 1 MG (AMARYL) TAB PO SCH (17:55)
[2020-12-21] MEDS: meTOproloL SUCCINATE 50 MG (TOPROL XL) TAB PO SCH (21:14)
[2020-12-22] VITALS (23 sets, daily range): BP systolic 77–130; BP diastolic 57–96
[2020-12-22 04:21] LABS: POTASSIUM 4.6 MMOL/L (3.6-5.0)
[2020-12-22 04:22] LABS: CALCIUM 8.9 MG/DL (8.5-10.1)
[2020-12-22 04:26] LABS: PHOSPHORUS 3.8 MG/DL (2.3-4.7)
[2020-12-22 04:27] LABS: CREATININE SERUM 0.88 MG/DL (0.60-1.30)
[2020-12-22 04:29] LABS: MAGNESIUM 2.1 MG/DL (1.6-2.4)
[2020-12-22] MEDS: dilTIAZem DRIP PRE-MIX 125 ML IV SCH ×2 (05:03→17:44)
[2020-12-22] MEDS: MAGNESIUM 1 GM/100 ML IVPB 100 ML IV SCH (05:04)
[2020-12-22] MEDS: POTASSIUM CL 10MEQ/50ML IVPB 50 ML IV SCH (05:04)
[2020-12-22] MEDS: inSUlin ASPART (NovoLOG) 1 UNIT/0.01 ML (CHARGE PER UNIT) SQ SCH ×4 (05:04→20:52)
[2020-12-22 05:17] LABS: BASOPHILS # (AUTO) 0.1 10^3/uL (0.0-0.1); BASOPHILS % (AUTO) 1 % (0-10); EOSINOPHILS # (AUTO) 0.2 10^3/uL (0.0-0.3); EOSINOPHILS % (AUTO) 2 % (0-10); HEMATOCRIT 46 % (40-54); HEMOGLOBIN 15.2 g/dL (13.3-17.7); LYMPHOCYTES # (AUTO) 2.9 10^3/uL (1.0-4.0); LYMPHOCYTES % (AUTO) 29 % (12-44); MEAN CORPUSCULAR HEMOGLOBIN 30 pg (25-34); MEAN CORPUSCULAR HGB CONC 33 g/dL (32-36); MEAN CORPUSCULAR VOLUME 90 fL (80-99); MEAN PLATELET VOLUME 12.6 fL (9.0-12.2); MONOCYTES # (AUTO) 0.9 10^3/uL (0.0-1.0); MONOCYTES % (AUTO) 9 % (0-12); NEUTROPHILS # (AUTO) 5.9 10^3/uL (1.8-7.8); NEUTROPHILS % (AUTO) 59 % (42-75); PLATELET COUNT 132 10^3/uL (130-400)
[2020-12-22] MEDS ORDERED: NS IV 500 ML 500 ML ONE (08:01)
[2020-12-22] MEDS ORDERED: LIDOCAINE 2% VISCOUS 15 ML UDC ONE (08:07)
--- NOTE | 2020-12-22 08:32 | Cardiology Progress Note ---
Progress Note-Cardiology Events since last exam Date Seen by Provider: Dec 22, 2020 Time Seen by Provider: 08:33 Events since last exam I am seeing him due to NSTEMI in the setting of nonischemic cardiomyopathy, a cute systolic heart failure and persistent atrial fibrillation. He remains in the ICU. He remains in atrial fibrillation. He denies chest discomfort, dyspnea, palpitations, syncope, or ankle edema. Certain portions of this document may have been dictated utilizing voice recognition technology. Inherent to this technology, typographical and grammatical errors may exist. As much as I am diligent to identify and correct these mistakes, some errors may remain in the document. Vitals Last set of Vitals Signs Vital Signs 12/22/20 12/22/20 07:43 08:00 Temp 36.3 Pulse 126 Resp 25 B/P (MAP) 93/80 (84) Pulse Ox 96 O2 Delivery Nasal Cannula O2 Flow Rate 2.00 Labs Labs Laboratory Tests 12/22/20 03:40 Exam Vital Signs Vital Signs Date Time Temp Pulse Resp B/P (MAP) Pulse Ox O2 Delivery O2 Flow Rate FiO2 12/22/20 08:00 126 25 93/80 (84) 96 Nasal Cannula 2.00 12/22/20 07:43 36.3 Physical Exam General: Alert. No acute distress. Eye: No xanthelasma. HENT: Normocephalic. Neck: Jugular venous pressure does not appear elevated. Respiratory: Lungs are clear to auscultation. Respirations are non-labored. Breath sounds are equal. Symmetrical chest wall expansion. Cardiovascular: Tachycardia with irregular rhythm. No murmur. No gallop. No edema. Gastrointestinal: Soft. Normal bowel sounds. Skin: Warm. Dry. Neurologic: Alert and oriented to person, place, time. Cranial nerves 3-11 grossly intact. Psychiatric: Cooperative. Appropriate mood & affect. Labs Laboratory Tests Test 12/21/20 10:56 12/21/20 15:54 12/21/20 20:41 12/22/20 03:40 Range/Units Glucometer 151 H 255 H 139 H 70-110 MG/DL White Blood Count 10.0 4.3-11.0 10^3/uL Red Blood Count 5.05 4.30-5.52 10^6/uL Hemoglobin 15.2 13.3-17.7 g/dL Hematocrit 46 40-54 % Mean Corpuscular Volume 90 80-99 fL Mean Corpuscular Hemoglobin 30 25-34 pg Mean Corpuscular Hemoglobin Concent 33 32-36 g/dL Red Cell Distribution Width 13.5 10.0-14.5 % Platelet Count 132 130-400 10^3/uL Mean Platelet Volume 12.6 H 9.0-12.2 fL Immature Granulocyte % (Auto) 0 % Neutrophils (%) (Auto) 59 42-75 % Lymphocytes (%) (Auto) 29 12-44 % Monocytes (%) (Auto) 9 0-12 % Eosinophils (%) (Auto) 2 0-10 % Basophils (%) (Auto) 1 0-10 % Neutrophils # (Auto) 5.9 1.8-7.8 10^3/uL Lymphocytes # (Auto) 2.9 1.0-4.0 10^3/uL Monocytes # (Auto) 0.9 0.0-1.0 10^3/uL Eosinophils # (Auto) 0.2 0.0-0.3 10^3/uL Basophils # (Auto) 0.1 0.0-0.1 10^3/uL Immature Granulocyte # (Auto) 0.0 0.0-0.1 10^3/uL Sodium Level 140 135-145 MMOL/L Potassium Level 4.6 3.6-5.0 MMOL/L Chloride Level 105 98-107 MMOL/L Carbon Dioxide Level 24 21-32 MMOL/L Anion Gap 11 5-14 MMOL/L Blood Urea Nitrogen 24 H 7-18 MG/DL Creatinine 0.88 0.60-1.30 MG/DL Estimat Glomerular Filtration Rate 90 BUN/Creatinine Ratio 27 Glucose Level 111 H 70-105 MG/DL Calcium Level 8.9 8.5-10.1 MG/DL Phosphorus Level 3.8 2.3-4.7 MG/DL Magnesium Level 2.1 1.6-2.4 MG/DL Diagnosis/Problems Diagnosis/Problems (1) Paroxysmal atrial fibrillation Assessment & Plan: He remains in atrial fibrillation with a rapid ventricular rate. I changed his metoprolol succinate to twice daily dosing due to some low blood pressures he has been having. I will have him undergo a transesophageal echocardiogram and possible cardioversion later this morning. Depending upon the results of this testing/procedure, he may be able to be discharged home later today. He will need to see me in the office next week. We will continue metoprolol for rate control and apixaban for stroke prophylaxis. (2) Acute systolic heart failure Assessment & Plan: He seems to be euvolemic at this point in time. Chest x-ray from 12/20 did not show pulmonary edema. He is on metoprolol succinate for the heart failure and cardiomyopathy as well as the atrial fibrillation and NSTEMI. I am holding off on giving him any other guideline directed medical therapy due to somewhat low blood pressures with the metoprolol. I will plan to add these other medications as an outpatient. (3) Non-ST elevation myocardial infarction (NSTEMI), initial care episode Assessment & Plan: He did have a small troponin leak. This is consistent with a type II non-ST elevation myocardial infarction related to supply/demand mismatch from the acute heart failure and tachycardia from the atrial fib rillation. We will proceed as above. Because of the drug-eluting stent that I placed in his diagonal branch, I have him on aspirin and clopidogrel. We will keep him on triple antiplatelet/anticoagulant therapy until discharge. At the time of discharge, he will be discharged on combination of clopidogrel and apixaban without aspirin. (4) Cardiomyopathy Assessment & Plan: He has severe left ventricular systolic dysfunction of undetermined etiology. This could be tachycardia mediated cardiomyopathy related to undiagnosed/newly diagnosed atrial fibrillation. Although he did require one coronary stent, this was a just branch of the left anterior de scending coronary artery and his other vessels were free of significant disease. As such, this is not ischemic cardiomyopathy. Nonetheless, given his low ejection fraction, he is at risk for sudden cardiac . I will get him set up for a LifeVest prior to discharge. The company unit support representative should be coming today to fit him for the LifeVest. 3 months after the stent, I will plan on a follow-up echocardiogram to determine whether or not he will need an implantable defibrillator. (5) Essential hypertension Assessment & Plan: His blood pressure is under good control with the metoprolol succinate. If anything, he is having some somewhat low blood pressures at time. I will hold off on restarting losartan until we can get his heart rate under control. As above, this may need to be done as an outpatient. (6) Mixed hyperlipidemia Assessment & Plan: Continue intensive dose statin in light of the myocardial infarction. (7) Type 2 diabetes mellitus with complication Assessment & Plan: His primary provider will be managing this condition. He may benefit from a SGLT2 inhibitor in the long run. BHARATHI ALMODOVAR JR, MD Dec 22, 2020 08:32
[2020-12-22] MEDS ORDERED: NS IV 1000 ML 1,000 ML IV ONE (10:00)
[2020-12-22] MEDS ORDERED: LIDOCAINE 2% VISCOUS 15 ML UDC PO ONE (10:00)
[2020-12-22] MEDS ORDERED: proPOfol 200 MG/20 ML (DIPRIVAN) VIAL IV ONE (10:04)
--- NOTE | 2020-12-22 10:21 | Tele-ICU Progress Note ---
Subjective Date Seen by a Provider: Dec 22, 2020 Time Seen by a Provider: 08:15 Subjective/Events-last exam Patient acknowledged, consented, and participated in this virtual visit which was conducted using real time audio/video. Thank you for asking us to see this patient for critical care management. HPC: Recent events:Still in afib/RVR. For cardioversion later today. PMH: CAD/CMP/stents PE: Alert, comfortable, waves to camera. HR 120-140 afib HEENT: No obvious masses, adenopathy or JVD. Chest: clear to auscultation. CV: Irreg. S1 S2 No murmur or added sounds. Abd: Non-tender. Bowel sounds Y. : Unremarkable. Talamantes: N . GARBAGE PERSON/psychiatric: Alert and oriented, grossly intact. No obvious focal findings. Extremities: No edema. Capillary refill < 3 seconds. Skin: unremarkable. Results: unremarkable. A/P: Afib: cardioversion w possible discharge later. Available chart/ vitals / labs / Images reviewed. Video assessment done using teleICU camera, rest of exam as per RN Discussed with RICHARD Sahu. Asked RN to reach out to eICU if any questions or concerns later. Time spent with patient/family/coordination of care with other health professionals (mins): 5 Sepsis Event Evaluation Height, Weight, BMI Height: 5'11.00" Weight: 220lbs. 0.0oz. 99.876678ks; 28.87 BMI Method: Exam Exam Patient acknowledged, consented, and participated in this virtual visit which was conducted using real time audio/video Vital Signs Date Time Temp Pulse Resp B/P (MAP) Pulse Ox O2 Delivery O2 Flow Rate FiO2 12/22/20 09:37 94 Nasal Cannula 2.00 12/22/20 09:00 134 28 112/71 (85) 94 Nasal Cannula 2.00 12/22/20 08:00 126 25 93/80 (84) 96 Nasal Cannula 2.00 12/22/20 07:43 36.3 12/22/20 07:00 122 46 112/88 (99) 94 Nasal Cannula 2.00 12/22/20 07:00 141 12/22/20 06:00 134 23 101/72 (82) 95 Nasal Cannula 2.00 12/22/20 05:00 134 14 97/86 (90) 90 Nasal Cannula 2.00 12/22/20 04:24 36.5 12/22/20 04:00 95 12/22/20 04:00 120 22 99/85 (90) 97 Nasal Cannula 2.00 12/22/20 03:00 118 16 101/64 (76) 92 Nasal Cannula 2.00 12/22/20 02:00 104 24 77/57 (64) 95 Nasal Cannula 2.00 12/22/20 01:00 104 12/22/20 01:00 121 21 84/73 (77) 97 Nasal Cannula 2.00 12/22/20 00:39 36.2 12/22/20 00:00 121 21 103/93 (96) 97 Nasal Cannula 2.00 12/22/20 00:00 95 12/21/20 23:00 115 16 121/98 (106) 97 Nasal Cannula 2.00 12/21/20 22:00 121 16 109/86 (94) 92 Nasal Cannula 2.00 12/21/20 21:00 121 23 120/74 (89) 92 Nasal Cannula 2.00 12/21/20 20:00 118 20 97/73 (81) 95 Nasal Cannula 2.00 12/21/20 20:00 95 12/21/20 19:51 36.4 12/21/20 19:00 124 12/21/20 19:00 124 23 105/95 (98) 97 Nasal Cannula 2.00 12/21/20 18:00 128 22 114/86 (95) 96 Nasal Cannula 2.00 12/21/20 17:00 124 14 103/87 (92) 95 Nasal Cannula 2.00 12/21/20 16:00 97 Room Air 12/21/20 16:00 142 20 113/95 (101) 96 Nasal Cannula 2.00 12/21/20 15:24 36.8 12/21/20 15:00 112 22 95/73 (80) 95 Nasal Cannula 2.00 12/21/20 14:00 111 28 108/73 (85) 96 Nasal Cannula 2.00 12/21/20 13:00 123 12/21/20 13:00 124 11 98/88 (91) 93 Nasal Cannula 2.00 12/21/20 12:00 36.4 12/21/20 12:00 124 12 99/86 (90) 97 Nasal Cannula 2.00 12/21/20 11:54 97 Room Air 12/21/20 11:00 135 17 119/97 (104) 98 Nasal Cannula 2.00 I & O 12/22/20 07:00 Intake Total 1310 ml Output Total 2775 ml Balance -1465 ml Height & Weight Height: 5'11.00" Weight: 220lbs. 0.0oz. 99.784830st; 28.87 BMI Method: General Appearance: No Apparent Distress, WD/WN, Anxious, Chronically ill HEENT: PERRL/EOMI, Normal ENT Inspection, Pharynx Normal Neck: Full Range of Motion, Normal Inspection, Non Tender, Supple, Carotid Bruit Respiratory: Chest Non Tender, Lungs Clear, Normal Breath Sounds, No Accessory Muscle Use, No Respiratory Distress, Decreased Breath Sounds Cardiovascular: Regular Rate, Rhythm, No Edema, No Gallop, No JVD, No Murmur, Normal Peripheral Pulses, Irregularly Irregular, Tachycardia Capillary Refill: Less Than 3 Seconds Gastrointestinal: normal bowel sounds, non tender, soft Extremity: Normal Capillary Refill, Normal Inspection, Normal Range of Motion, Non Tender, No Calf Tenderness, No Pedal Edema, Pedal Edema, Other (tr edema) Neurologic/Psychiatric: Alert, Oriented x3, No Motor/Sensory Deficits, Normal Mood/Affect Skin: Normal Color, Warm/Dry Lymphatic: No Adenopathy Results Lab Laboratory Tests 12/21/20 03:00 12/22/20 03:40 Assessment/Plan Assessment/Plan See free text. Time spent on discussion(mins): 0 LEO CARVER MD Dec 22, 2020 10:21
[2020-12-22] MEDS ORDERED: NS IV 500 ML 500 ML IV SCH (10:30)
--- NOTE | 2020-12-22 10:32 | Anesthesia-General Post-Op ---
MAC Patient Condition Mental Status/LOC: Same as Preop Cardiovascular: Satisfactory Nausea/Vomiting: Absent Respiratory: Satisfactory Pain: Controlled Complications: Absent Post Op Complications Complications None Follow Up Care/Instructions Patient Instructions None needed. Anesthesiology Discharge Order Discharge Order Patient is doing well, no complaints, stable vital signs, no apparent adverse anesthesia problems. No complications reported per nursing. HI ROMAN CRNA Dec 22, 2020 10:32
[2020-12-22] MEDS ORDERED: DIGOXIN 0.25 MG/ML (LANOXIN) 2 ML AMP IV ONE ×3 (11:00→23:00)
--- NOTE | 2020-12-22 11:03 | Progress Note ---
HANG PENALOZA 12/22/20 1103: Subjective Date Seen by a Provider: Dec 22, 2020 Time Seen by a Provider: 11:01 Subjective/Events-last exam Patient reports feeling better, less flustered, and is more cooperative than yesterday. Denies any chest pain, urinary incontinence, nor constipation. DAYNA performed today 12/22/20 10:00 w/ impression: thrombus and slight mitral regurg. Plans to continue hospitalization for monitoring by cardiology with life vest and eliquis. Review of Systems General: No Chills; Appetite HEENT: No Visual Changes, No Eye Pain, No Ear Pain Pulmonary: No Dyspnea, No Cough Cardiovascular: No: Chest Pain, Edema, Lt Headedness Gastrointestinal: No: Nausea, Vomiting, Diarrhea, Constipation Genitourinary: No Dysuria, No Incontinence, No Hematuria Musculoskeletal: No: neck pain, shoulder pain, arm pain, back pain, hand pain, leg pain, foot pain Neurological: No: Weakness, Numbness, Change in speech Objective Exam Last Set of Vital Signs Vital Signs Date Time Temp Pulse Resp B/P (MAP) Pulse Ox O2 Delivery O2 Flow Rate FiO2 12/22/20 10:00 149 18 130/69 (89) 95 Nasal Cannula 2.00 12/22/20 07:43 36.3 Capillary Refill : Less Than 3 Seconds I&O Intake and Output 12/22/20 00:00 Intake Total 1835 ml Output Total 2725 ml Balance -890 ml Intake Oral 1835 ml Output Urine Total 2725 ml # Bowel Movements 1 General: Alert, Oriented X3, Cooperative HEENT: Atraumatic, EOMI Neck: Supple Lungs: Clear to Auscultation, Normal Air Movement Abdomen: Soft, No Tenderness Extremities: No Clubbing, No Cyanosis, No Tenderness/Swelling Skin: No Rashes, No Significant Lesion Neuro: Normal Speech, Sensation Intact, Cranial Nerves 3-12 NL (grossly intact) Results Lab Laboratory Tests 12/21/20 15:54: Glucometer 255H 12/21/20 20:41: Glucometer 139H 12/22/20 03:40: White Blood Count 10.0, Red Blood Count 5.05, Hemoglobin 15.2, Hematocrit 46, Mean Corpuscular Volume 90, Mean Corpuscular Hemoglobin 30, Mean Corpuscular Hemoglobin Concent 33, Red Cell Distribution Width 13.5, Platelet Count 132, Mean Platelet Volume 12.6H, Immature Granulocyte % (Auto) 0, Neutrophils (%) (Auto) 59, Lymphocytes (%) (Auto) 29, Monocytes (%) (Auto) 9, Eosinophils (%) (Auto) 2, Basophils (%) (Auto) 1, Neutrophils # (Auto) 5.9, Lymphocytes # (Auto) 2.9, Monocytes # (Auto) 0.9, Eosinophils # (Auto) 0.2, Basophils # (Auto) 0.1, Immature Granulocyte # (Auto) 0.0, Sodium Level 140, Potassium Level 4.6, Chloride Level 105, Carbon Dioxide Level 24, Anion Gap 11, Blood Urea Nitrogen 24H, Creatinine 0.88, Estimat Glomerular Filtration Rate 90, BUN/Creatinine Ratio 27, Glucose Level 111H, Calcium Level 8.9, Phosphorus Level 3.8, Magnesium Level 2.1 Microbiology 12/18/20 MRSA Screen - Final, Complete MRSA not isolated 12/18/20 Blood Culture - Preliminary, Resulted No growth Assessment/Plan Assessment/Plan Assess & Plan/Chief Complaint Dyspnea- significantly improved from yesterday -Titrate O2 to keep O2 sats > 90% -Encourage cough and deep breathing -sleep with HOB elevated NSTEMI type 2 -followed by cardiology -continue to monitor New onset atrial fibrillation with rapid ventricular response -DAYNA performed revealing thrombus, slight mitral regurgitation -cardiology following -digoxen -Continue cardiac monitoring -continue eliquis -wear life vest Acute systolic heart failure - Continue recommendations per cardiology -continue IVP lasix --EF 15-20% via TTE 12/18/20 and 12/22/20 Cardiomyopathy - Continue recommendations per cardiology CAD -Status post cardiac cath 12/19/2020 with drug eluting stent placed to the first diagonal branch -continue aspirin and plavix GI PPX -add protonix Elevated BNP -continue to monitor Elevated Troponin -trended down -continue to monitor Elevated D-dimer -continue to monitor as necessary Former smoker quit 1 month ago -encouraged continued abstinence Diabetes mellitus -continue SSI and accucheck achs Hypertension -Continue metoprolol Transfer care to cardiology In denial about medical issues GABRIELLA GOMEZ DO 12/23/20 0533: Subjective Subjective/Events-last exam Patient doing better Less short of breath Tachycardia continues Will load with digoxin and stop the Cardizem and monitor closely Still significant denial about medical issues Review of Systems General: Fatigue Pulmonary: Dyspnea Objective Exam General: Alert, Oriented X3, Cooperative, No Acute Distress Lungs: Clear to Auscultation, Normal Air Movement Heart: Other (Tachycardic and irregular) Neuro: Normal Gait, Normal Speech, Strength at 5/5 X4 Ext, Normal Tone Assessment/Plan Assessment/Plan Assess & Plan/Chief Complaint Monitor closely Loaded with dig Anticoagulation LifeVest Supervisory-Addendum Brief Verification & Attestation Participated in pt care: history, MDM, physical Personally performed: exam, history, MDM, supervision of care Care discussed with: Medical Student Procedures: n/a Results interpretation: Verified all documentation Verification and Attestation of Medical Student E/M Service A medical student performed and documented this service in my presence. I reviewed and verified all information documented by the medical student and made modifications to such information, when appropriate. I personally performed the physical exam and medical decision making. Gabriella Gomez Dec 23, 2020,05:32 HANG PENALOZA Dec 22, 2020 11:03 GABRIELLA GOMEZ DO Dec 23, 2020 05:33
--- NOTE | 2020-12-22 11:26 | Conscious Sedation/ASA ---
Conscious Sedation Pre-Proced Time 08:47 ASA Score 3 For ASA 3 and 4: Consider anesthesia and medical clearance. Also, for patients with a history of failed moderate sedation consider anesthesia. Airway Lungs Heart ASA score ASA 1: a normal healthy patient ASA 2: a patient with a mild systemic disease (mid diabetes, controlled hypertension, obesity x ASA 3: a patient with a severe systemic disease that limits activity (angina, COPD, prior Myocardial infarction) ASA 4: a patient with an incapacitating disease that is a constant threat to life (CHF, renal failure) ASA 5: a moribund patient not expected to survive 24 hrs. (ruptured aneurysm) ASA 6: a declared brain- patient whose organs are being harvested. For emergent operations, add the letter E after the classification Mallampati Classification Grade 3 Sedation Plan Analgesia, Amnesia, Plan communicated to team members, Discussed options with patient/fam, Discussed risks with patient/fam The patient is an appropriate candidate to undergo the planned procedure, sedation, and anesthesia. The patient immediately re-assessed prior to indication. CRISTOBAL JACKSON MD Dec 22, 2020 11:26
[2020-12-22] MEDS: meTOproloL SUCCINATE 50 MG (TOPROL XL) TAB PO SCH ×2 (12:28→20:08)
[2020-12-22] MEDS: CLOPIDOGREL 75 MG (PLAVIX) TABLET PO SCH (12:28)
[2020-12-22] MEDS: ASPIRIN E.C. 81 MG (ECOTRIN) TAB PO SCH (12:28)
[2020-12-22] MEDS: SENNA W/DOCUSATE (SENOKOT S) TABLET PO SCH ×2 (12:28→20:08)
[2020-12-22] MEDS: APIXABAN 5 MG (ELIQUIS) TABLET PO SCH ×2 (12:28→20:08)
[2020-12-22] MEDS: GLIMEPIRIDE 1 MG (AMARYL) TAB PO SCH (17:45)
[2020-12-23] VITALS (17 sets, daily range): BP systolic 84–141; BP diastolic 50–105
[2020-12-23 03:27] LABS: POTASSIUM 4.3 MMOL/L (3.6-5.0)
[2020-12-23 03:28] LABS: CALCIUM 8.7 MG/DL (8.5-10.1)
[2020-12-23 03:32] LABS: CREATININE SERUM 0.8 MG/DL (0.60-1.30)
[2020-12-23] MEDS: dilTIAZem DRIP PRE-MIX 125 ML IV SCH ×2 (05:18→17:28)
[2020-12-23] MEDS: POTASSIUM CL 10MEQ/50ML IVPB 50 ML IV SCH (05:18)
[2020-12-23] MEDS: MAGNESIUM 1 GM/100 ML IVPB 100 ML IV SCH (05:19)
[2020-12-23] MEDS: inSUlin ASPART (NovoLOG) 1 UNIT/0.01 ML (CHARGE PER UNIT) SQ SCH ×4 (05:19→21:05)
[2020-12-23] MEDS: ASPIRIN E.C. 81 MG (ECOTRIN) TAB PO SCH (08:14)
[2020-12-23] MEDS: DIGOXIN 0.25 MG (LANOXIN) TAB PO SCH (08:14)
[2020-12-23] MEDS: APIXABAN 5 MG (ELIQUIS) TABLET PO SCH ×2 (08:14→20:52)
[2020-12-23] MEDS: CLOPIDOGREL 75 MG (PLAVIX) TABLET PO SCH (08:14)
[2020-12-23] MEDS: meTOproloL SUCCINATE 50 MG (TOPROL XL) TAB PO SCH ×2 (08:15→20:52)
[2020-12-23] MEDS: SENNA W/DOCUSATE (SENOKOT S) TABLET PO SCH ×3 (08:15→21:12)
--- NOTE | 2020-12-23 10:25 | Tele-ICU Progress Note ---
Subjective Date Seen by a Provider: Dec 23, 2020 Time Seen by a Provider: 10:00 Subjective/Events-last exam Thank you for asking us to see this patient for critical care issues HPC: Recent events: DAYNA 12/22 revealed atrial thrombus so cardioversion abandoned. PMH: CAD/stent/CMP/EF 15-20%. PE: Comfortable appearing. VSS HR 104 afib BP 120/88 RR 17 O2 sat 93% on RA HEENT: No obvious masses, adenopathy or JVD. Chest: clear to auscultation. CV: Irreg. S1 S2 No murmur or added sounds. Abd: Non-tender. Bowel sounds Y. : Unremarkable. Talamantes N. INCOME TAX PREPARER/psychiatric: Alert and oriented, grossly intact. No obvious focal findings. Extremities: No edema. Skin: unremarkable. Results: Elevated . Decreased . A/P: Afib: Available chart/ vitals / labs / Images reviewed. Video assessment done using teleICU camera, rest of exam as per RN. Continue present management with Eiquis, digoxin and life Vest per Cards se rvice. Possible discharge later. Discussed with RICHARD Johnson. Asked RN to reach out to eICU if any questions or concerns later. Time spent with patient/coordination of care with other health professionals (mins): 10 Sepsis Event Evaluation Height, Weight, BMI Height: 5'11.00" Weight: 220lbs. 0.0oz. 99.024680ov; 28.87 BMI Method: Exam Exam Patient acknowledged, consented, and participated in this virtual visit which was conducted using real time audio/video Vital Signs Date Time Temp Pulse Resp B/P (MAP) Pulse Ox O2 Delivery O2 Flow Rate FiO2 12/23/20 10:00 109 24 133/105 (119) Nasal Cannula 2.00 12/23/20 09:00 96 22 114/86 (95) 96 Nasal Cannula 2.00 12/23/20 08:00 116 27 118/88 (97) 93 Nasal Cannula 2.00 12/23/20 07:50 36.2 12/23/20 07:00 108 12/23/20 07:00 105 21 126/98 (106) 98 Nasal Cannula 2.00 12/23/20 06:00 103 17 104/94 (97) 99 Nasal Cannula 2.00 12/23/20 05:00 76 21 104/50 (68) 95 Nasal Cannula 2.00 12/23/20 04:00 79 27 84/67 (73) 90 Nasal Cannula 2.00 12/23/20 03:45 36.5 12/23/20 03:00 97 20 116/87 (97) 92 Nasal Cannula 2.00 12/23/20 02:00 92 16 101/75 (84) 93 Nasal Cannula 2.00 12/23/20 01:00 93 20 94/72 (79) 92 Nasal Cannula 2.00 12/23/20 01:00 83 12/23/20 00:00 95 12/23/20 00:00 86 23 113/100 (104) 93 Nasal Cannula 2.00 12/22/20 23:00 97 18 109/95 (100) 96 Nasal Cannula 2.00 12/22/20 22:00 93 20 116/75 (89) 94 Nasal Cannula 2.00 12/22/20 21:00 99 15 127/95 (106) 95 Nasal Cannula 2.00 12/22/20 20:00 93 26 101/72 (82) 94 Nasal Cannula 2.00 12/22/20 20:00 95 12/22/20 19:49 36.9 12/22/20 19:00 99 24 116/78 (91) 93 Nasal Cannula 2.00 12/22/20 19:00 100 12/22/20 18:00 106 21 111/86 (94) 97 Nasal Cannula 2.00 12/22/20 17:00 106 11 93 Nasal Cannula 2.00 12/22/20 16:06 36.5 12/22/20 16:00 93 Room Air 12/22/20 16:00 98 21 103/78 (90) 94 Nasal Cannula 2.00 12/22/20 15:00 105 11 115/89 (98) 96 Nasal Cannula 2.00 12/22/20 14:00 115 15 103/79 (87) 96 Nasal Cannula 2.00 12/22/20 13:00 116 16 108/96 (100) 94 Nasal Cannula 2.00 12/22/20 12:50 119 12/22/20 12:00 115 25 128/81 (97) 95 Nasal Cannula 2.00 12/22/20 11:27 94 Room Air 12/22/20 11:00 125 29 113/84 (94) 98 Nasal Cannula 2.00 I & O 12/23/20 07:00 Intake Total 975 ml Output Total 1760 ml Balance -785 ml Height & Weight Height: 5'11.00" Weight: 220lbs. 0.0oz. 99.897801kl; 28.87 BMI Method: General Appearance: No Apparent Distress, WD/WN, Anxious, Chronically ill HEENT: PERRL/EOMI, Normal ENT Inspection, Pharynx Normal Neck: Full Range of Motion, Normal Inspection, Non Tender, Supple, Carotid Bruit Respiratory: Chest Non Tender, Lungs Clear, Normal Breath Sounds, No Accessory Muscle Use, No Respiratory Distress, Decreased Breath Sounds Cardiovascular: Regular Rate, Rhythm, No Edema, No Gallop, No JVD, No Murmur, Normal Peripheral Pulses, Irregularly Irregular, Tachycardia Capillary Refill: Less Than 3 Seconds Gastrointestinal: normal bowel sounds, non tender, soft Extremity: Normal Capillary Refill, Normal Inspection, Normal Range of Motion, Non Tender, No Calf Tenderness, No Pedal Edema, Pedal Edema, Other (tr edema) Neurologic/Psychiatric: Alert, Oriented x3, No Motor/Sensory Deficits, Normal Mood/Affect Skin: Normal Color, Warm/Dry Lymphatic: No Adenopathy Results Lab Laboratory Tests 12/22/20 03:40 12/23/20 03:02 Assessment/Plan Assessment/Plan see free text. Critical Care: Critically Ill Patient Time spent on discussion(mins): 0 LEO CARVER MD Dec 23, 2020 10:25
[2020-12-23] MEDS: dilTIAZem120 MG (CARDIZEM CD) CAP PO SCH (11:00)
--- NOTE | 2020-12-23 11:47 | Cardiology Progress Note ---
Subjective Date Seen by Provider: Dec 23, 2020 Time Seen by Provider: 11:43 Subjective/Events-last exam Patient was seen at bedside, laying down comfortably, denied any chest pain, heart rate is better Review of Systems General: No Chills, No Night Sweats, No Fatigue, No Malaise, No Appetite, No Other HEENT: No Head Aches, No Visual Changes, No Eye Pain, No Ear Pain, No Dysphasia, No Sinus Congestion, No Post Nasal Drip, No Sore Throat, No Other Pulmonary: No Dyspnea, No Cough, No Pleuritic Chest Pain, No Other Cardiovascular: No: Chest Pain, Palpitations, Orthopnea, Paroxysmal Noc. Dyspnea, Edema, Lt Headedness, Other Objective-Cardiology Exam Last Set of Vital Signs Vital Signs 12/23/20 12/23/20 12/23/20 07:50 09:00 11:00 Temp 36.2 Pulse 101 Resp 36 B/P (MAP) 123/71 (88) Pulse Ox 96 O2 Delivery Nasal Cannula O2 Flow Rate 2.00 I&O Intake and Output 12/23/20 00:00 Intake Total 725 ml Output Total 1160 ml Balance -435 ml Intake Oral 725 ml Output Urine Total 1160 ml # Voids 3 # Bowel Movements 1 General: Alert, Oriented X3, Cooperative, No Acute Distress HEENT: Atraumatic, EOMI Neck: Supple Lungs: Clear to Auscultation, Normal Air Movement Heart: Normal S1, Normal S2, Other (Tachycardic and irregular) Abdomen: Soft, No Tenderness Extremities: No Clubbing, No Cyanosis, No Tenderness/Swelling Skin: No Rashes, No Significant Lesion Neuro: Normal Gait, Normal Speech, Strength at 5/5 X4 Ext, Normal Tone Psych/Mental Status: Mental Status NL Results Lab Laboratory Tests 12/23/20 03:02 A/P-Cardiology Admission Diagnosis Persistent atrial fibrillation Congestive heart failure, acute left ventricular systolic dysfunction, nonischemic cardiomyopathy Coronary artery disease Hypertension Assessment/Plan Persistent atrial fibrillation, underwent DAYNA which showed dilated left ventricle and left atrium with left atrial appendage with possible thrombus, started on oral anticoagulation. Continue to monitor, consider repeating DAYNA in 6 weeks for possible cardioversion Tachycardia, difficult to control rate, having multiple episode of hypotension, started on metoprolol and digoxin, I added Cardizem orally and will evaluate tolerance and response, possible discharge tomorrow. Congestive heart failure, acute left ventricular systolic dysfunction, nonischemic cardiomyopathy, probably secondary to tachycardia. Unable to tolerate SANTY inhibitor and/or ARB due to hypotension Increased risk of sudden , have a LifeVest. Coronary artery disease, cardiac catheterization was carried out by Dr. Greenfield, had a stent to the diagonal artery, maintained on aspirin and Plavix in addition to the Eliquis. Hypertension, borderline hypotension due to aggressive treatment Mixed hyperlipidemia, receiving statin. Diabetes mellitus, followed and managed by primary care physician CRISTOBAL JACKSON MD Dec 23, 2020 11:47
--- NOTE | 2020-12-23 11:49 | Progress Note ---
Subjective Date Seen by a Provider: Dec 23, 2020 Time Seen by a Provider: 10:00 Subjective/Events-last exam Patient doing better today Dig slowed has helped heart rate Odilon p.o. started LifeVest on Updated Check meds and labs Review of Systems General: Fatigue, Malaise Pulmonary: Dyspnea Objective Exam Last Set of Vital Signs Vital Signs Date Time Temp Pulse Resp B/P (MAP) Pulse Ox O2 Delivery O2 Flow Rate FiO2 12/23/20 11:00 101 36 123/71 (88) Nasal Cannula 2.00 12/23/20 09:00 96 12/23/20 07:50 36.2 Capillary Refill : Less Than 3 Seconds I&O Intake and Output 12/23/20 00:00 Intake Total 725 ml Output Total 1160 ml Balance -435 ml Intake Oral 725 ml Output Urine Total 1160 ml # Voids 3 # Bowel Movements 1 General: Alert, Oriented X3, Cooperative, No Acute Distress Lungs: Clear to Auscultation Heart: Other (Tachycardic and irregular) Neuro: Normal Gait, Normal Speech, Strength at 5/5 X4 Ext, Normal Tone Results Lab Laboratory Tests 12/22/20 15:49: Glucometer 165H 12/22/20 20:50: Glucometer 147H 12/23/20 03:02: Sodium Level 141, Potassium Level 4.3, Chloride Level 108H, Carbon Dioxide Level 22, Anion Gap 11, Blood Urea Nitrogen 20H, Creatinine 0.80, Estimat Glomerular Filtration Rate 101, BUN/Creatinine Ratio 25, Glucose Level 88, Calcium Level 8.7, Phosphorus Level 4.0, Magnesium Level 2.0 12/23/20 10:29: Glucometer 153H Microbiology 12/18/20 MRSA Screen - Final, Complete MRSA not isolated 12/18/20 Blood Culture - Preliminary, Resulted No growth Assessment/Plan Assessment/Plan Assess & Plan/Chief Complaint Assessment: Atrial fibrillation with rapid ventricular response refractory due to hypotension limitation and thrombus on DAYNA cardioversion contraindicated New onset cardiomyopathy CAD status post stent and diagonal branch this admit by Dr. Greenfield Diabetes mellitus Hypertension as an outpatient Recent smoking cessation Plan: Monitor closely Loaded with dig Anticoagulation LifeVest Diagnosis/Problems Diagnosis/Problems (1) Acute systolic heart failure (2) Cardiomyopathy (3) Type 2 diabetes mellitus with complication (4) Mixed hyperlipidemia (5) Essential hypertension (6) Paroxysmal atrial fibrillation (7) Dyspnea WILTON GOMEZ DO Dec 23, 2020 11:49
[2020-12-23] MEDS: GLIMEPIRIDE 1 MG (AMARYL) TAB PO SCH (17:32)
[2020-12-24] VITALS: BP 109/74
[2020-12-24 03:05] LABS: BASOPHILS # (AUTO) 0.1 10^3/uL (0.0-0.1); BASOPHILS % (AUTO) 1 % (0-10); EOSINOPHILS # (AUTO) 0.3 10^3/uL (0.0-0.3); EOSINOPHILS % (AUTO) 3 % (0-10); HEMATOCRIT 45 % (40-54); HEMOGLOBIN 14.9 g/dL (13.3-17.7); LYMPHOCYTES # (AUTO) 2.6 10^3/uL (1.0-4.0); LYMPHOCYTES % (AUTO) 29 % (12-44); MEAN CORPUSCULAR HEMOGLOBIN 30 pg (25-34); MEAN CORPUSCULAR HGB CONC 33 g/dL (32-36); MEAN CORPUSCULAR VOLUME 90 fL (80-99); MEAN PLATELET VOLUME 12.1 fL (9.0-12.2); MONOCYTES % (AUTO) 11 % (0-12); NEUTROPHILS # (AUTO) 5.1 10^3/uL (1.8-7.8); NEUTROPHILS % (AUTO) 56 % (42-75); PLATELET COUNT 148 10^3/uL (130-400); WHITE BLOOD COUNT 9.2 10^3/uL (4.3-11.0)
[2020-12-24 03:18] LABS: ALBUMIN 3.5 GM/DL (3.2-4.5); POTASSIUM 4.2 MMOL/L (3.6-5.0)
[2020-12-24 03:22] LABS: BILIRUBIN,TOTAL 0.7 MG/DL (0.1-1.0)
[2020-12-24 03:24] LABS: CREATININE SERUM 0.87 MG/DL (0.60-1.30); PHOSPHORUS 4.1 MG/DL (2.3-4.7)
[2020-12-24 04:00] VITALS: BP 101/85
[2020-12-24] MEDS: inSUlin ASPART (NovoLOG) 1 UNIT/0.01 ML (CHARGE PER UNIT) SQ SCH ×2 (04:57→11:24)
[2020-12-24] MEDS: dilTIAZem DRIP PRE-MIX 125 ML IV SCH (04:58)
[2020-12-24 07:38] VITALS: BP 117/99
[2020-12-24] MEDS ORDERED: LOSA25TA41 PO (10:53)
[2020-12-24] MEDS ORDERED: ASPI-1238 PO (10:53)
[2020-12-24] MEDS ORDERED: CLOP75TA28 PO (10:53)
[2020-12-24] MEDS ORDERED: METO50TA7 PO (10:53)
[2020-12-24] MEDS ORDERED: APIX5TAB PO (10:53)
[2020-12-24] MEDS ORDERED: DIGO250T15 PO (10:53)
[2020-12-24] MEDS ORDERED: ATOR80TA76 PO (10:53)
[2020-12-24] MEDS ORDERED: DILT240C86 PO (10:53)
[2020-12-24] MEDS: DIGOXIN 0.25 MG (LANOXIN) TAB PO SCH (11:17)
[2020-12-24] MEDS: ASPIRIN E.C. 81 MG (ECOTRIN) TAB PO SCH (11:17)
[2020-12-24] MEDS: dilTIAZem120 MG (CARDIZEM CD) CAP PO SCH (11:17)
[2020-12-24] MEDS: meTOproloL SUCCINATE 50 MG (TOPROL XL) TAB PO SCH (11:18)
[2020-12-24] MEDS: CLOPIDOGREL 75 MG (PLAVIX) TABLET PO SCH (11:18)
[2020-12-24] MEDS: SENNA W/DOCUSATE (SENOKOT S) TABLET PO SCH (11:18)
[2020-12-24] MEDS: APIXABAN 5 MG (ELIQUIS) TABLET PO SCH (11:18)
[2020-12-24] MEDS ORDERED: dilTIAZem120 MG (CARDIZEM CD) CAP PO SCH (11:30)
[2020-12-24 11:54] VITALS: BP 98/86
--- NOTE | 2020-12-24 12:00 | Cardiology Progress Note ---
Subjective Date Seen by Provider: Dec 24, 2020 Time Seen by Provider: 11:59 Subjective/Events-last exam Patient was seen at bedside, sitting comfortably, feeling better. No new complaint Review of Systems General: No Chills, No Night Sweats, No Fatigue, No Malaise, No Appetite, No Other HEENT: No Head Aches, No Visual Changes, No Eye Pain, No Ear Pain, No Dysphasia, No Sinus Congestion, No Post Nasal Drip, No Sore Throat, No Other Pulmonary: No Dyspnea, No Cough, No Pleuritic Chest Pain, No Other Cardiovascular: No: Chest Pain, Palpitations, Orthopnea, Paroxysmal Noc. Dyspnea, Edema, Lt Headedness, Other Objective-Cardiology Exam Last Set of Vital Signs Vital Signs 12/23/20 12/24/20 16:00 11:54 Temp 36.6 Pulse 112 Resp 16 B/P (MAP) 98/86 (90) Pulse Ox 95 O2 Delivery Room Air O2 Flow Rate 2.00 I&O Intake and Output 12/24/20 00:00 Intake Total 1700 ml Output Total 1600 ml Balance 100 ml Intake Oral 1700 ml Output Urine Total 1600 ml # Voids 5 General: Alert, Oriented X3, Cooperative, No Acute Distress HEENT: Atraumatic, EOMI Neck: Supple Lungs: Clear to Auscultation Heart: Normal S1, Normal S2, Other (Tachycardic and irregular) Abdomen: Soft, No Tenderness Extremities: No Clubbing, No Cyanosis, No Tenderness/Swelling Skin: No Rashes, No Significant Lesion Neuro: Normal Gait, Normal Speech, Strength at 5/5 X4 Ext, Normal Tone Psych/Mental Status: Mental Status NL Results Lab Laboratory Tests 12/24/20 02:42 A/P-Cardiology Admission Diagnosis Persistent atrial fibrillation Congestive heart failure, acute left ventricular systolic dysfunction, nonischemic cardiomyopathy Coronary artery disease Hypertension Assessment/Plan Persistent atrial fibrillation, underwent DAYNA which showed dilated left ventricle and left atrium with left atrial appendage with possible thrombus, started on oral anticoagulation. Continue to monitor, consider repeating DAYNA in 6 weeks for possible cardioversion Tachycardia, better today, will increase diltiazem to 240 mg daily and evaluate tolerance and response as an outpatient Congestive heart failure, acute left ventricular systolic dysfunction, nonischemic cardiomyopathy, probably secondary to tachycardia. Unable to tolerate SANTY inhibitor and/or ARB due to hypotension Increased risk of sudden , have a LifeVest. Coronary artery disease, cardiac catheterization was carried out by Dr. Greenfield, had a stent to the diagonal artery, maintained on aspirin and Plavix in addition to the Eliquis. Hypertension, borderline hypotension due to aggressive treatment Mixed hyperlipidemia, receiving statin. Diabetes mellitus, followed and managed by primary care physician Okdeep for discharge and follow-up as an outpatient with Dr. Greenfield on CRISTOBAL JACKSON MD Dec 24, 2020 12:00
[2020-12-24] MEDS ORDERED: FURO40TA4 PO (12:10)
--- NOTE | 2020-12-24 12:11 | Discharge Summary ---
Diagnosis/Chief Complaint Date of Admission Dec 18, 2020 at 11:18 Date of Discharge Discharge Date: Dec 24, 2020 Discharge Diagnosis Assessment: Atrial fibrillation with rapid ventricular response refractory due to hypotension limitation and thrombus on DAYNA cardioversion contraindicated New onset cardiomyopathy CAD status post stent and diagonal branch this admit by Dr. Greenfield Diabetes mellitus Hypertension as an outpatient Recent smoking cessation Plan: Monitor closely Loaded with dig Anticoagulation LifeVest Discharge Summary Discharge Physical Examination Allergies: Coded Allergies: No Known Drug Allergies (Unverified , 07/04/16) Vitals & I&Os Vital Signs Date Time Temp Pulse Resp B/P (MAP) Pulse Ox O2 Delivery O2 Flow Rate FiO2 12/24/20 11:54 36.6 112 16 98/86 (90) 95 Room Air 12/23/20 16:00 2.00 General Appearance: Alert, Oriented X3, Cooperative Respiratory: Clear to Auscultation Cardiovascular: Other (Irregular regular heart rate 102) Hospital Course Was the Problem List Reviewed?: Yes Patient had a lengthy hospital course he was directly admitted for continued shortness of breath and we pursued pulmonary causes but upon assessment of EKG on admission he was noted to have new onset atrial fibrillation with rapid ventricular response. Hypertension required transfer to ICU placed on Cardizem drip with IV fluid. Echocardiogram showed new onset of severe cardiomyopathy of ejection fraction of 15 to 20% meeting criteria for LifeVest. Cardiac cath performed showing stenosis of the diagonal branch of the LAD and stent was deployed and had no complications by Dr. Greenfield. Patient had been placed on Eliquis the week before for elevated D-dimer in preparation of CT angiogram of the chest history of COPD to rule out PE so he was maintained on 5 mg twice daily. DYANA performed showing thrombus in the atrium precluding cardioversion to prevent stroke and that will be attempted in about 3 months. LifeVest was fitted and maintained. Hypotension resolved and digoxin was loaded and placed on Cardizem p.o. Blood sugars managed with sliding scale insulin regimen. Labs remained stable did not require oxygen at discharge chest x-ray was clear and patient was deemed stable for discharge with close follow-up with me in clinic. Tickborne titer pending at time of discharge to pursue other sources of cardiomyopathy. Patient will need a sleep study since suspect obstructive sleep apnea. COPD diagnosis likely due to long-term smoking and smoking cessation was counseled to maintain. Patient had difficulty with denial about medical conditions as he has in the past for all the years I have taken care of him. T ried to community health counselor and educate. Labs (last 24 hrs) Laboratory Tests 12/18/20 11:59: SARS-CoV-2 RNA (RT-PCR) Not Detected 12/18/20 12:05: Legionella Antibody <1:128 12/18/20 12:55: White Blood Count 11.7H, Red Blood Count 5.36, Hemoglobin 16.0, Hematocrit 48, Mean Corpuscular Volume 90, Mean Corpuscular Hemoglobin 30, Mean Corpuscular Hemoglobin Concent 33, Red Cell Distribution Width 14.0, Platelet Count 153, Mean Platelet Volume 11.6, Immature Granulocyte % (Auto) 1, Neutrophils (%) (Auto) 68, Lymphocytes (%) (Auto) 20, Monocytes (%) (Auto) 9, Eosinophils (%) (Auto) 1, Basophils (%) (Auto) 1, Neutrophils # (Auto) 8.0H, Lymphocytes # (Auto) 2.4, Monocytes # (Auto) 1.1H, Eosinophils # (Auto) 0.2, Basophils # (Auto) 0.1, Immature Granulocyte # (Auto) 0.1, Prothrombin Time 14.8H, INR Comment 1.1, D-Dimer 1.00H, Sodium Level 139, Potassium Level 4.3, Chloride Level 106, Carbon Dioxide Level 25, Anion Gap 8, Blood Urea Nitrogen 23H, Creatinine 0.88, Estimat Glomerular Filtration Rate 90, BUN/Creatinine Ratio 26, Glucose Level 162H, Mean Blood Glucose 148H, Hemoglobin A1c 6.8H, Lactic Acid Level 1.17, Calcium Level 9.3, Corrected Calcium 9.4, Total Bilirubin 1.1H, Aspartate Amino Transf (AST/SGOT) 32, Alanine Aminotransferase (ALT/SGPT) 38, Alkaline Phosphatase 91, Troponin I < 0.028, B-Type Natriuretic Peptide 220.9H, Total Protein 6.7, Albumin 3.9, Procalcitonin 0.06 12/18/20 13:00: Urine Opiates Screen NEGATIVE, Urine Oxycodone Screen NEGATIVE, Urine Methadone Screen NEGATIVE, Urine Propoxyphene Screen NEGATIVE, Urine Barbiturates Screen NEGATIVE, Ur Tricyclic Antidepressants Screen NEGATIVE, Urine Phencyclidine Screen NEGATIVE, Urine Amphetamines Screen NEGATIVE, Urine Methamphetamines Screen NEGATIVE, Urine Benzodiazepines Screen NEGATIVE, Urine Cocaine Screen NEGATIVE, Urine Cannabinoids Screen NEGATIVE, Urine Legionella pneumophilia Ag Negative 12/18/20 13:17: Blood Gas Puncture Site unk, Blood Gas Patient Temperature 36.8, Arterial Blood pH 7.41, Arterial Blood Partial Pressure CO2 44, Arterial Blood Partial Pressure O2 48L, Arterial Blood HCO3 28H, Arterial Blood Total CO2 28.9, Arterial Blood Oxygen Saturation 80L, Arterial Blood Base Excess 3.2H, [place] Test unk, Blood Gas Ventilator Setting NO, Blood Gas Inspired Oxygen unk 12/18/20 13:26: Glucometer 158H 12/18/20 17:10: Glucometer 110 12/18/20 17:15: Thyroid Stimulating Hormone (TSH) 2.76 12/18/20 20:18: Glucometer 161H 12/19/20 03:13: White Blood Count 14.4H, Red Blood Count 5.84H, Hemoglobin 17.4, Hematocrit 52, Mean Corpuscular Volume 90, Mean Corpuscular Hemoglobin 30, Mean Corpuscular Hemoglobin Concent 33, Red Cell Distribution Width 14.0, Platelet Count 156, Mean Platelet Volume 12.8H, Immature Granulocyte % (Auto) 1, Neutrophils (%) (Auto) 64, Lymphocytes (%) (Auto) 25, Monocytes (%) (Auto) 9, Eosinophils (%) (Auto) 2, Basophils (%) (Auto) 1, Neutrophils # (Auto) 9.1H, Lymphocytes # (Auto) 3.6, Monocytes # (Auto) 1.2H, Eosinophils # (Auto) 0.2, Basophils # (Auto) 0.1, Immature Granulocyte # (Auto) 0.1, Neutrophils % (Manual) 61, Lymphocytes % (Manual) 25, Monocytes % (Manual) 10, Eosinophils % (Manual) 4, Sodium Level 138, Potassium Level 4.4, Chloride Level 99, Carbon Dioxide Level 23, Anion Gap 16H, Blood Urea Nitrogen 26H, Creatinine 1.19, Estimat Glomerular Filtration Rate 64, BUN/Creatinine Ratio 22, Glucose Level 146H, Calcium Level 9.8, Corrected Calcium 9.6, Phosphorus Level 5.4H, Magnesium Level 2.0, Total Bilirubin 1.3H, Aspartate Amino Transf (AST/SGOT) 36H, Alanine Aminotransferase (ALT/SGPT) 37, Alkaline Phosphatase 78, Troponin I 0.031H, Total Protein 7.3, Albumin 4.2, Triglycerides Level 151H, Cholesterol Level 175, LDL Cholesterol Direct 93, VLDL Cholesterol 30, HDL Cholesterol 60 12/19/20 08:25: Blood Gas Puncture Site RIGHT RADIAL, Blood Gas Patient Temperature 36.3, Arterial Blood pH 7.46H, Arterial Blood Partial Pressure CO2 38, Arterial Blood Partial Pressure O2 63L, Arterial Blood HCO3 27, Arterial Blood Total CO2 28.3, Arterial Blood Oxygen Saturation 94, Arterial Blood Base Excess 3.4H, [place] Test POSITIVE, Blood Gas Ventilator Setting NO, Blood Gas Inspired Oxygen N/A 12/19/20 10:50: Glucometer 173H 12/19/20 15:35: Glucometer 200H 12/19/20 20:15: Glucometer 153H 12/20/20 03:35: White Blood Count 14.6H, Red Blood Count 5.09, Hemoglobin 15.1, Hematocrit 45, Mean Corpuscular Volume 89, Mean Corpuscular Hemoglobin 30, Mean Corpuscular Hemoglobin Concent 34, Red Cell Distribution Width 13.4, Platelet Count 137, Mean Platelet Volume 11.8, Percent Immature Platelet Fraction 7.1, Sodium Level 135, Potassium Level 4.0, Chloride Level 98, Carbon Dioxide Level 24, Anion Gap 13, Blood Urea Nitrogen 24H, Creatinine 0.89, Estimat Glomerular Filtration Rate 89, BUN/Creatinine Ratio 27, Glucose Level 140H, Calcium Level 8.6, Phosphorus Level 3.2, Magnesium Level 2.0 12/20/20 10:48: Glucometer 180H 12/20/20 15:30: Glucometer 176H 12/20/20 20:35: Glucometer 218H 12/21/20 03:00: White Blood Count 11.6H, Red Blood Count 4.95, Hemoglobin 15.0, Hematocrit 45, Mean Corpuscular Volume 91, Mean Corpuscular Hemoglobin 30, Mean Corpuscular Hemoglobin Concent 33, Red Cell Distribution Width 13.4, Platelet Count 132, Mean Platelet Volume 12.4H, Immature Granulocyte % (Auto) 0, Neutrophils (%) (Auto) 65, Lymphocytes (%) (Auto) 23, Monocytes (%) (Auto) 10, Eosinophils (%) (Auto) 2, Basophils (%) (Auto) 1, Neutrophils # (Auto) 7.6, Lymphocytes # (Auto) 2.6, Monocytes # (Auto) 1.1H, Eosinophils # (Auto) 0.2, Basophils # (Auto) 0.1, Immature Granulocyte # (Auto) 0.1, Sodium Level 138, Potassium Level 3.9, Chloride Level 101, Carbon Dioxide Level 25, Anion Gap 12, Blood Urea Nitrogen 26H, Creatinine 0.89, Estimat Glomerular Filtration Rate 89, BUN/Creatinine Ratio 29, Glucose Level 106H, Calcium Level 8.5, Phosphorus Level 3.6, Magnesium Level 2.1, Total Bilirubin 1.4H, Direct Bilirubin 0.5H, Indirect Bilirubin 0.9, Aspartate Amino Transf (AST/SGOT) 30, Alanine Aminotransferase (ALT/SGPT) 31, Alkaline Phosphatase 74, Total Protein 6.0L, Albumin 3.4 12/21/20 10:56: Glucometer 151H 12/21/20 15:54: Glucometer 255H 12/21/20 20:41: Glucometer 139H 12/22/20 03:40: White Blood Count 10.0, Red Blood Count 5.05, Hemoglobin 15.2, Hematocrit 46, Mean Corpuscular Volume 90, Mean Corpuscular Hemoglobin 30, Mean Corpuscular Hemoglobin Concent 33, Red Cell Distribution Width 13.5, Platelet Count 132, Mean Platelet Volume 12.6H, Immature Granulocyte % (Auto) 0, Neutrophils (%) (Auto) 59, Lymphocytes (%) (Auto) 29, Monocytes (%) (Auto) 9, Eosinophils (%) (Auto) 2, Basophils (%) (Auto) 1, Neutrophils # (Auto) 5.9, Lymphocytes # (Auto) 2.9, Monocytes # (Auto) 0.9, Eosinophils # (Auto) 0.2, Basophils # (Auto) 0.1, Immature Granulocyte # (Auto) 0.0, Sodium Level 140, Potassium Level 4.6, Chloride Level 105, Carbon Dioxide Level 24, Anion Gap 11, Blood Urea Nitrogen 24H, Creatinine 0.88, Estimat Glomerular Filtration Rate 90, BUN/Creatinine Ratio 27, Glucose Level 111H, Calcium Level 8.9, Phosphorus Level 3.8, Magnesium Level 2.1, [place] Antibody <1:20 12/22/20 11:17: Glucometer 129H 12/22/20 15:49: Glucometer 165H 12/22/20 20:50: Glucometer 147H 12/23/20 03:02: Sodium Level 141, Potassium Level 4.3, Chloride Level 108H, Carbon Dioxide Level 22, Anion Gap 11, Blood Urea Nitrogen 20H, Creatinine 0.80, Estimat Glomerular Filtration Rate 101, BUN/Creatinine Ratio 25, Glucose Level 88, Calcium Level 8.7, Phosphorus Level 4.0, Magnesium Level 2.0 12/23/20 10:29: Glucometer 153H 12/23/20 17:25: Glucometer 173H 12/23/20 20:57: Glucometer 79 12/24/20 02:42: White Blood Count 9.2, Red Blood Count 5.03, Hemoglobin 14.9, Hematocrit 45, Mean Corpuscular Volume 90, Mean Corpuscular Hemoglobin 30, Mean Corpuscular Hemoglobin Concent 33, Red Cell Distribution Width 13.2, Platelet Count 148, Mean Platelet Volume 12.1, Immature Granulocyte % (Auto) 0, Neutrophils (%) (Auto) 56, Lymphocytes (%) (Auto) 29, Monocytes (%) (Auto) 11, Eosinophils (%) (Auto) 3, Basophils (%) (Auto) 1, Neutrophils # (Auto) 5.1, Lymphocytes # (Auto) 2.6, Monocytes # (Auto) 1.0, Eosinophils # (Auto) 0.3, Basophils # (Auto) 0.1, Immature Granulocyte # (Auto) 0.0, Sodium Level 143, Potassium Level 4.2, Chloride Level 107, Carbon Dioxide Level 22, Anion Gap 14, Blood Urea Nitrogen 22H, Creatinine 0.87, Estimat Glomerular Filtration Rate 91, BUN/Creatinine Ratio 25, Glucose Level 110H, Calcium Level 9.0, Corrected Calcium 9.4, Phosphorus Level 4.1, Magnesium Level 2.0, Total Bilirubin 0.7, Aspartate Amino Transf (AST/SGOT) 36H, Alanine Aminotransferase (ALT/SGPT) 38, Alkaline Phosphatase 91, Total Protein 6.0L, Albumin 3.5, Digoxin Level 0.46L 12/24/20 11:24: Glucometer 109 Microbiology 12/18/20 MRSA Screen - Final, Complete MRSA not isolated 12/18/20 Blood Culture - Final, Complete No growth Pending Labs Microbiology Date/Time Source Procedure Growth Status 12/18/20 18:10 Nasal MRSA Screen - Final MRSA not isolated Complete 12/18/20 13:05 Peripheral Rt Ac Blood Culture - Final No growth Complete 12/18/20 12:55 Peripheral Lt Ac Blood Culture - Final No growth Complete Laboratory Tests 12/18/20 11:59: SARS-CoV-2 RNA (RT-PCR) Not Detected 12/18/20 12:05: Legionella Antibody <1:128 12/18/20 12:55: White Blood Count 11.7, Red Blood Count 5.36, Hemoglobin 16.0, Hematocrit 48, Mean Corpuscular Volume 90, Mean Corpuscular Hemoglobin 30, Mean Corpuscular Hemoglobin Concent 33, Red Cell Distribution Width 14.0, Platelet Count 153, Mean Platelet Volume 11.6, Immature Granulocyte % (Auto) 1, Neutrophils (%) (A uto) 68, Lymphocytes (%) (Auto) 20, Monocytes (%) (Auto) 9, Eosinophils (%) (Auto) 1, Basophils (%) (Auto) 1, Neutrophils # (Auto) 8.0, Lymphocytes # (Auto) 2.4, Monocytes # (Auto) 1.1, Eosinophils # (Auto) 0.2, Basophils # (Auto) 0.1, Immature Granulocyte # (Auto) 0.1, Prothrombin Time 14.8, INR Comment 1.1, D- Dimer 1.00, Sodium Level 139, Potassium Level 4.3, Chloride Level 106, Carbon Dioxide Level 25, Anion Gap 8, Blood Urea Nitrogen 23, Creatinine 0.88, Estimat Glomerular Filtration Rate 90, BUN/Creatinine Ratio 26, Glucose Level 162, Mean Blood Glucose 148, Hemoglobin A1c 6.8, Lactic Acid Level 1.17, Calcium Level 9.3, Corrected Calcium 9.4, Total Bilirubin 1.1, Aspartate Amino Transf (AST/SGOT) 32, Alanine Aminotransferase (ALT/SGPT) 38, Alkaline Phosphatase 91, Troponin I < 0.028, B-Type Natriuretic Peptide 220.9, Total Protein 6.7, Albumin 3.9, Procalcitonin 0.06 12/18/20 13:00: Urine Opiates Screen NEGATIVE, Urine Oxycodone Screen NEGATIVE, Urine Methadone Screen NEGATIVE, Urine Propoxyphene Screen NEGATIVE, Urine Barbiturates Screen NEGATIVE, Ur Tricyclic Antidepressants Screen NEGATIVE, Urine Phencyclidine Screen NEGATIVE, Urine Amphetamines Screen NEGATIVE, Urine Methamphetamines Screen NEGATIVE, Urine Benzodiazepines Screen NEGATIVE, Urine Cocaine Screen NEGATIVE, Urine Cannabinoids Screen NEGATIVE, Urine Legionella pneumophilia Ag Negative 12/18/20 13:17: Blood Gas Puncture Site unk, Blood Gas Patient Temperature 36.8, Arterial Blood pH 7.41, Arterial Blood Partial Pressure CO2 44, Arterial Blood Partial Pressure O2 48, Arterial Blood HCO3 28, Arterial Blood Total CO2 28.9, Arterial Blood Oxygen Saturation 80, Arterial Blood Base Excess 3.2, [place] Test unk, Blood Gas Ventilator Setting NO, Blood Gas Inspired Oxygen unk 12/18/20 13:26: Glucometer 158 12/18/20 17:10: Glucometer 110 12/18/20 17:15: Thyroid Stimulating Hormone (TSH) 2.76 12/18/20 20:18: Glucometer 161 12/19/20 03:13: White Blood Count 14.4, Red Blood Count 5.84, Hemoglobin 17.4, Hematocrit 52, Mean Corpuscular Volume 90, Mean Corpuscular Hemoglobin 30, Mean Corpuscular Hemoglobin Concent 33, Red Cell Distribution Width 14.0, Platelet Count 156, Mean Platelet Volume 12.8, Immature Granulocyte % (Auto) 1, Neutrophils (%) (Auto) 64, Lymphocytes (%) (Auto) 25, Monocytes (%) (Auto) 9, Eosinophils (%) (Auto) 2, Basophils (%) (Auto) 1, Neutrophils # (Auto) 9.1, Lymphocytes # (Auto) 3.6, Monocytes # (Auto) 1.2, Eosinophils # (Auto) 0.2, Basophils # (Auto) 0.1, Immature Granulocyte # (Auto) 0.1, Neutrophils % (Manual) 61, Lymphocytes % (M anual) 25, Monocytes % (Manual) 10, Eosinophils % (Manual) 4, Sodium Level 138, Potassium Level 4.4, Chloride Level 99, Carbon Dioxide Level 23, Anion Gap 16, Blood Urea Nitrogen 26, Creatinine 1.19, Estimat Glomerular Filtration Rate 64, BUN/Creatinine Ratio 22, Glucose Level 146, Calcium Level 9.8, Corrected Calcium 9.6, Phosphorus Level 5.4, Magnesium Level 2.0, Total Bilirubin 1.3, Aspartate Amino Transf (AST/SGOT) 36, Alanine Aminotransferase (ALT/SGPT) 37, Alkaline Phosphatase 78, Troponin I 0.031, Total Protein 7.3, Albumin 4.2, Triglycerides Level 151, Cholesterol Level 175, LDL Cholesterol Direct 93, VLDL Cholesterol 30, HDL Cholesterol 60 12/19/20 08:25: Blood Gas Puncture Site RIGHT RADIAL, Blood Gas Patient Temperature 36.3, A rterial Blood pH 7.46, Arterial Blood Partial Pressure CO2 38, Arterial Blood Partial Pressure O2 63, Arterial Blood HCO3 27, Arterial Blood Total CO2 28.3, Arterial Blood Oxygen Saturation 94, Arterial Blood Base Excess 3.4, [place] Test POSITIVE, Blood Gas Ventilator Setting NO, Blood Gas Inspired Oxygen N/A 12/19/20 10:50: Glucometer 173 12/19/20 15:35: Glucometer 200 12/19/20 20:15: Glucometer 153 12/20/20 03:35: White Blood Count 14.6, Red Blood Count 5.09, Hemoglobin 15.1, Hematocrit 45, Mean Corpuscular Volume 89, Mean Corpuscular Hemoglobin 30, Mean Corpuscular Hemoglobin Concent 34, Red Cell Distribution Width 13.4, Platelet Count 137, Mean Platelet Volume 11.8, Percent Immature Platelet Fraction 7.1, Sodium Level 135, Potassium Level 4.0, Chloride Level 98, Carbon Dioxide Level 24, Anion Gap 13, Blood Urea Nitrogen 24, Creatinine 0.89, Estimat Glomerular Filtration Rate 89, BUN/Creatinine Ratio 27, Glucose Level 140, Calcium Level 8.6, Phosphorus Level 3.2, Magnesium Level 2.0 12/20/20 10:48: Glucometer 180 12/20/20 15:30: Glucometer 176 12/20/20 20:35: Glucometer 218 12/21/20 03:00: White Blood Count 11.6, Red Blood Count 4.95, Hemoglobin 15.0, Hematocrit 45, Mean Corpuscular Volume 91, Mean Corpuscular Hemoglobin 30, Mean Corpuscular Hemoglobin Concent 33, Red Cell Distribution Width 13.4, Platelet Count 132, Mean Platelet Volume 12.4, Immature Granulocyte % (Auto) 0, Neutrophils (%) (Auto) 65, Lymphocytes (%) (Auto) 23, Monocytes (%) (Auto) 10, Eosinophils (%) (Auto) 2, Basophils (%) (Auto) 1, Neutrophils # (Auto) 7.6, Lymphocytes # (Auto) 2.6, Monocytes # (Auto) 1.1, Eosinophils # (Auto) 0.2, Basophils # (Auto) 0.1, Immature Granulocyte # (Auto) 0.1, Sodium Level 138, Potassium Level 3.9, Chloride Level 101, Carbon Dioxide Level 25, Anion Gap 12, Blood Urea Nitrogen 26, Creatinine 0.89, Estimat Glomerular Filtration Rate 89, BUN/Creatinine Ratio 29, Glucose Level 106, Calcium Level 8.5, Phosphorus Level 3.6, Magnesium Level 2.1, Total Bilirubin 1.4, Direct Bilirubin 0.5, Indirect Bilirubin 0.9, Aspartate Amino Transf (AST/SGOT) 30, Alanine Aminotransferase (ALT/SGPT) 31, Alkaline Phosphatase 74, Total Protein 6.0, Albumin 3.4 12/21/20 10:56: Glucometer 151 12/21/20 15:54: Glucometer 255 12/21/20 20:41: Glucometer 139 12/22/20 03:40: White Blood Count 10.0, Red Blood Count 5.05, Hemoglobin 15.2, Hematocrit 46, Mean Corpuscular Volume 90, Mean Corpuscular Hemoglobin 30, Mean Corpuscular Hemoglobin Concent 33, Red Cell Distribution Width 13.5, Platelet Count 132, Mean Platelet Volume 12.6, Immature Granulocyte % (Auto) 0, Neutrophils (%) (Auto) 59, Lymphocytes (%) (Auto) 29, Monocytes (%) (Auto) 9, Eosinophils (%) (Auto) 2, Basophils (%) (Auto) 1, Neutrophils # (Auto) 5.9, Lymphocytes # (Auto) 2.9, Monocytes # (Auto) 0.9, Eosinophils # (Auto) 0.2, Basophils # (Auto) 0.1, Immature Granulocyte # (Auto) 0.0, Sodium Level 140, Potassium Level 4.6, Chloride Level 105, Carbon Dioxide Level 24, Anion Gap 11, Blood Urea Nitrogen 24, Creatinine 0.88, Estimat Glomerular Filtration Rate 90, BUN/Creatinine Ratio 27, Glucose Level 111, Calcium Level 8.9, Phosphorus Level 3.8, Magnesium Level 2.1, Ehrlichia chaffeensis IgG Antibody [Pending], Ehrlichia chaffeensis IgM Ant ibody [Pending], Spotted Fever Group IgG Antibody [Pending], Spotted Fever Group IgM Antibody [Pending], [place] Antibody <1:20 12/22/20 11:17: Glucometer 129 12/22/20 15:49: Glucometer 165 12/22/20 20:50: Glucometer 147 12/23/20 03:02: Sodium Level 141, Potassium Level 4.3, Chloride Level 108, Carbon Dioxide Level 22, Anion Gap 11, Blood Urea Nitrogen 20, Creatinine 0.80, Estimat Glomerular Filtration Rate 101, BUN/Creatinine Ratio 25, Glucose Level 88, Calcium Level 8.7, Phosphorus Level 4.0, Magnesium Level 2.0 12/23/20 10:29: Glucometer 153 12/23/20 17:25: Glucometer 173 12/23/20 20:57: Glucometer 79 12/24/20 02:42: White Blood Count 9.2, Red Blood Count 5.03, Hemoglobin 14.9, Hematocrit 45, Mean Corpuscular Volume 90, Mean Corpuscular Hemoglobin 30, Mean Corpuscular Hemoglobin Concent 33, Red Cell Distribution Width 13.2, Platelet Count 148, Mean Platelet Volume 12.1, Immature Granulocyte % (Auto) 0, Neutrophils (%) (Auto) 56, Lymphocytes (%) (Auto) 29, Monocytes (%) (Auto) 11, Eosinophils (%) (Auto) 3, Basophils (%) (Auto) 1, Neutrophils # (Auto) 5.1, Lymphocytes # (Auto) 2.6, Monocytes # (Auto) 1.0, Eosinophils # (Auto) 0.3, Basophils # (Auto) 0.1, Immature Granulocyte # (Auto) 0.0, Sodium Level 143, Potassium Level 4.2, [place] Level 107, Carbon Dioxide Level 22, Anion Gap 14, Blood Urea Nitrogen 22, Creatinine 0.87, Estimat Glomerular Filtration Rate 91, BUN/Creatinine Ratio 25, Glucose Level 110, Calcium Level 9.0, Corrected Calcium 9.4, Phosphorus Level 4.1, Magnesium Level 2.0, Total Bilirubin 0.7, Aspartate Amino Transf (AST/SGOT) 36, Alanine Aminotransferase (ALT/SGPT) 38, Alkaline Phosphatase 91, Total Protein 6.0, Albumin 3.5, Digoxin Level 0.46 12/24/20 11:24: Glucometer 109 Discharge Home Medications: Active Scripts Active Furosemide 40 Mg Tablet 40 Mg PO Q48H Losartan Potassium 25 Mg Tablet 25 Mg PO DAILY Cardizem Cd (Diltiazem HCl) 240 Mg Cap.er.24h 240 Mg PO DAILY Aspirin EC (Aspirin) 81 Mg Tablet.dr 81 Mg PO DAILY Metoprolol Succinate 50 Mg Tab.er.24h 50 Mg PO BID Atorvastatin Calcium 80 Mg Tablet 80 Mg PO HS Digox (Digoxin) 250 Mcg Tablet 0.25 Mg PO DAILY Clopidogrel (Clopidogrel Bisulfate) 75 Mg Tablet 75 Mg PO DAILY Eliquis (Apixaban) 5 Mg Tablet 5 Mg PO HS Reported Glimepiride 1 Mg Tablet 1 Mg PO 1800 Instructions to patient/family Please see electronic discharge instructions given to patient. Diagnosis/Problems Diagnosis/Problems (1) Acute systolic heart failure (2) Cardiomyopathy (3) Type 2 diabetes mellitus with complication (4) Mixed hyperlipidemia (5) Essential hypertension (6) Paroxysmal atrial fibrillation (7) Dyspnea WILTON GOMEZ DO Dec 24, 2020 12:11
== END 2020-12-24 13:00 | disposition home or self-care (01) | DRG 246 ==
LOC: CSD 11:18 → ICU 14:10 → CSD 12-23 17:47
PROVIDERS: ADMIT Internal Medicine; ATTEND Internal Medicine
PROC: 027034Z Dilation of Coronary Artery, One Artery with Drug-eluting Intraluminal Device, Percutaneous Approach (ICD-10-PCS; principal; 2020-12-19)
PROC: 4A023N7 Measurement of Cardiac Sampling and Pressure, Left Heart, Percutaneous Approach (ICD-10-PCS; 2020-12-19)
PROC: B2111ZZ Fluoroscopy of Multiple Coronary Arteries using Low Osmolar Contrast (ICD-10-PCS; 2020-12-19)
DX: I25.10 Atherosclerotic heart disease of native coronary artery without angina pectoris (principal); I50.21 Acute systolic (congestive) heart failure; I21.A1 Myocardial infarction type 2; I11.0 Hypertensive heart disease with heart failure; I48.0 Paroxysmal atrial fibrillation; I42.9 Cardiomyopathy, unspecified; I51.3 Intracardiac thrombosis, not elsewhere classified; I95.9 Hypotension, unspecified; E11.9 Type 2 diabetes mellitus without complications; E78.2 Mixed hyperlipidemia; Z79.01 Long term (current) use of anticoagulants; Z79.84 Long term (current) use of oral hypoglycemic drugs; Z87.891 Personal history of nicotine dependence; Z20.822 Contact with and (suspected) exposure to COVID-19; Z82.49 Family history of ischemic heart disease and other diseases of the circulatory system
CPT/HCPCS: 36415; 71045; 71275; 80048; 80053; 80061; 80076; 80162; 80306; 82805; 82947; 83036; 83605; 83735; 83880; 84100; 84145; 84443; 84484; 85007; 85025; 85027; 85347; 85379; 85610; 86666; 86668; 86713; 86757; 87040; 87081; 87449; 87636; 93005; 93306; 93312; 93320; 93325; 93458; 93970

== ENCOUNTER → 2021-02-01 | Day surgery (SDC) | payer OTHER ==
[2021-02-01] VITALS (7 sets, daily range): BP systolic 99–129; BP diastolic 73–93
[~2021-02-01] VITALS: Ht 182.9 cm; Wt 100.0 kg
[~2021-02-01] MED LIST changes: +APIX5TAB PO; +ASPI-1238 PO; +ATOR80TA76 PO; +CATHETER FLUSH 10 ML SYR IV PRN; +CLOP75TA28 PO; +DIGO250T15 PO; +DIGO250T3 PO; +DILT240C86 PO; +DRON400T6 PO; +DRONEDARONE TABLET 400 MG TABLET PO SCH; +FURO40TA4 PO; +GLIM1TAB4 PO; +HEParin (CATH LAB) 2,000 ML IV ONE; +LIDOCAINE 1% INJ 20 ML 20 ML VIAL ONE; +LOSA25TA41 PO; +LOSA50TA63 PO; +METO50TA7 PO; +MIDAZOLAM 2 MG/2 ML (VERSED) VIAL ONE; +NS IV 1000 ML 1,000 ML IV ONE; +NS IV 1000 ML 1,000 ML ONE; +OMEG-177 PO; +SPIR25TA5 PO; +proPOfol 200 MG/20 ML (DIPRIVAN) VIAL IV ONE
--- NOTE | 2021-02-01 11:52 | Cardioversion ---
Cardioversion DIRECT CURRENT CARDIOVERSION PROCEDURE PHYSICIAN: David Greenfield Jr., MD DATE OF PROCEDURE: 02/01/2021 INDICATION: Persistent atrial fibrillation. PROCEDURE: After informed consent and in the fasting state, deep sedation was provided by the anesthesia department. I subsequently performed direct-current cardioversion with 1 synchronized biphasic shock at 100 J with successful conversion of atrial fibrillation to sinus rhythm. Unfortunately, 10-15 minutes following the procedure, the patient reverted to atrial fibrillation. IMPRESSION: 1. Status post successful direct-current cardioversion of atrial fibrillation to sinus rhythm with 1 synchronized biphasic shock at 100 J. Unfortunately, 10-15 minutes following the procedure, the patient reverted to atrial fibrillation. 2. The patient will continue on rivaroxaban for stroke prophylaxis and metoprolol for rate control. I will initiate therapy with dronedarone 400 mg twice daily. I will plan to see him again in the office next week. If he remains in atrial fibrillation, I will schedule him for another cardioversion but while on dronedarone. DAVID GREENFIELD JR, MD Feb 01, 2021 11:52
--- NOTE | 2021-02-01 12:43 | Anesthesia-General Post-Op ---
MAC Patient Condition Mental Status/LOC: Same as Preop Cardiovascular: Satisfactory Nausea/Vomiting: Absent Respiratory: Satisfactory Pain: Controlled Complications: Absent Post Op Complications Complications None Follow Up Care/Instructions Patient Instructions None needed. Anesthesiology Discharge Order Discharge Order Patient is doing well, no complaints, stable vital signs, no apparent adverse anesthesia problems. No complications reported per nursing. BERNICE MARCUS CRNA Feb 01, 2021 12:43
== END ==
LOC: CATH 11:00
PROVIDERS: ATTEND Internal Medicine Cardiovascular Disease
DX: I48.19 Other persistent atrial fibrillation (principal); I25.10 Atherosclerotic heart disease of native coronary artery without angina pectoris; I10 Essential (primary) hypertension; E11.9 Type 2 diabetes mellitus without complications; I50.22 Chronic systolic (congestive) heart failure; I42.9 Cardiomyopathy, unspecified; I34.0 Nonrheumatic mitral (valve) insufficiency; I21.9 Acute myocardial infarction, unspecified; Z79.84 Long term (current) use of oral hypoglycemic drugs; Z79.899 Other long term (current) drug therapy; Z87.891 Personal history of nicotine dependence; Z79.02 Long term (current) use of antithrombotics/antiplatelets; Z83.3 Family history of diabetes mellitus
CPT/HCPCS: 93005

== ENCOUNTER 2021-02-08 09:30 | Day surgery (SDC) | payer OTHER ==
[~2021-02-08] VITALS: Ht 182 cm; Wt 100.0 kg
[2021-02-08] VITALS (8 sets, daily range): BP systolic 91–123; BP diastolic 72–100
[~2021-02-08 09:30] MED LIST changes: -DRONEDARONE TABLET 400 MG TABLET PO SCH; -HEParin (CATH LAB) 2,000 ML IV ONE; -LIDOCAINE 1% INJ 20 ML 20 ML VIAL ONE; -MIDAZOLAM 2 MG/2 ML (VERSED) VIAL ONE; +OMEG-109 PO
--- NOTE | 2021-02-08 09:31 | Cardiac Procedure Note ---
Cardiology Procedures Date of Procedure 02/08/2021 DIRECT-CURRENT CARDIOVERSION INDICATION: Persistent atrial fibrillation PROCEDURE: After informed consent and in the fasting state, direct-current cardioversion was performed with synchronized, biphasic shocks in a stepwise fashion starting with 100 J, then 150 J, then 2 shocks at 200 J. With the 200 J shocks, the patient would convert to sinus rhythm but within a few heartbeats would revert back to atrial fibrillation. IMPRESSION: 1. Status post unsuccessful direct-current cardioversion with a final biphasic energy level of 200 J. The patient would convert to sinus rhythm but within a few heartbeats would revert back to atrial fibrillation. 2. The dronedarone will be discontinued. I will consider starting him on an alternative antiarrhythmic drug versus atrial fibrillation ablation. Certain portions of this document may have been dictated utilizing voice recognition technology. Inherent to this technology, typographical and grammatical errors may exist. As much as I am diligent to identify and correct these mistakes, some errors may remain in the document. BHARATHI ALMODOVAR JR, MD Feb 08, 2021 09:31
--- NOTE | 2021-02-08 13:18 | Anesthesia-General Post-Op ---
MAC Patient Condition Mental Status/LOC: Same as Preop Cardiovascular: Satisfactory Nausea/Vomiting: Absent Respiratory: Satisfactory Pain: Controlled Complications: Absent Post Op Complications Complications None Follow Up Care/Instructions Patient Instructions None needed. Anesthesiology Discharge Order Discharge Order Patient is doing well, no complaints, stable vital signs, no apparent adverse anesthesia problems. No complications reported per nursing. TYRONE LEON CRNA Feb 08, 2021 13:18
== END 2021-02-08 10:10 ==
LOC: CATH 09:30
PROVIDERS: ATTEND Internal Medicine Cardiovascular Disease
DX: I48.19 Other persistent atrial fibrillation (principal); E78.5 Hyperlipidemia, unspecified; I48.91 Unspecified atrial fibrillation; I50.22 Chronic systolic (congestive) heart failure; I42.9 Cardiomyopathy, unspecified; I25.10 Atherosclerotic heart disease of native coronary artery without angina pectoris; I34.9 Nonrheumatic mitral valve disorder, unspecified; I34.0 Nonrheumatic mitral (valve) insufficiency; E66.9 Obesity, unspecified; I51.89 Other ill-defined heart diseases; E11.9 Type 2 diabetes mellitus without complications; Z79.02 Long term (current) use of antithrombotics/antiplatelets; Z79.899 Other long term (current) drug therapy; Z79.84 Long term (current) use of oral hypoglycemic drugs; Z79.01 Long term (current) use of anticoagulants; Z87.891 Personal history of nicotine dependence; Z68.30 Body mass index [BMI] 30.0-30.9, adult; Z83.3 Family history of diabetes mellitus
CPT/HCPCS: 92960; 93005

== ENCOUNTER 2021-02-15 10:00 | Day surgery (SDC) | payer OTHER ==
[~2021-02-15] VITALS: Ht 182 cm; Wt 100.0 kg
[2021-02-15 09:46] VITALS: BP 109/87
[2021-02-15 10:00] VITALS: BP 121/93
[~2021-02-15 10:00] MED LIST changes: +NS IV 1000 ML 1,000 ML IV SCH
[2021-02-15 10:05] VITALS: BP 110/77
[2021-02-15 10:10] VITALS: BP 109/81
[2021-02-15 10:15] VITALS: BP 112/84
[2021-02-15 10:20] VITALS: BP 116/85
--- NOTE | 2021-02-15 10:26 | Cardiac Procedure Note ---
Cardiology Procedures Date of Procedure 02/15/2021 DIRECT-CURRENT CARDIOVERSION INDICATION: Persistent atrial fibrillation. HISTORY: The patient is a 55-year-old male with persistent atrial fibrillation. He also has nonischemic cardiomyopathy with an ejection fraction of approximately 35%. He previously underwent a cardioversion but within a short period of time, reverted to atrial fibrillation. I then placed him on dronedarone and after 1 week performed another cardioversion. This was also successful but within a few minutes he reverted back to atrial fibrillation. The dronedarone was discontinued. Earlier this week I started him on sotalol. After 5 doses, he remained in atrial fibrillation. As such, he is now referred for direct-current cardioversion. He has been on oral anticoagulation for well over 1 month. PROCEDURE: After informed consent and in the fasting state, direct-current cardioversion was performed with synchronized, biphasic shocks starting with 1 shock at 200 J. With the first shock, the patient converted to sinus rhythm but within about 30 seconds reverted back to atrial fibrillation. I subsequently performed 1 additional biphasic synchronized shock at 200 J with successful conversion of atrial fibrillation to sinus rhythm. IMPRESSION: 1. Status post successful direct-current cardioversion with 2 shocks at a biphasic energy level of 200 J with conversion of atrial fibrillation to sinus rhythm. Certain portions of this document may have been dictated utilizing voice recognition technology. Inherent to this technology, typographical and grammatical errors may exist. As much as I am diligent to identify and correct these mistakes, some errors may remain in the document. BHARATHI ALMODOVAR JR, MD Feb 15, 2021 10:26
[2021-02-15] MEDS ORDERED: SOTA120T PO (10:27)
--- NOTE | 2021-02-15 10:29 | Anesthesia-General Post-Op ---
MAC Patient Condition Mental Status/LOC: Same as Preop Cardiovascular: Satisfactory Nausea/Vomiting: Absent Respiratory: Satisfactory Pain: Controlled Complications: Absent Post Op Complications Complications None Follow Up Care/Instructions Patient Instructions None needed. Anesthesiology Discharge Order Discharge Order Patient is doing well, no complaints, stable vital signs, no apparent adverse anesthesia problems. LION HO DO Feb 15, 2021 10:29
== END 2021-02-15 11:18 | disposition home or self-care (01) ==
LOC: CATH 10:00
PROVIDERS: ATTEND Internal Medicine Cardiovascular Disease
DX: I48.19 Other persistent atrial fibrillation (principal); I42.8 Other cardiomyopathies; I25.10 Atherosclerotic heart disease of native coronary artery without angina pectoris; I50.22 Chronic systolic (congestive) heart failure; E11.59 Type 2 diabetes mellitus with other circulatory complications; E66.9 Obesity, unspecified; I34.0 Nonrheumatic mitral (valve) insufficiency; Z86.718 Personal history of other venous thrombosis and embolism; Z79.899 Other long term (current) drug therapy; Z79.84 Long term (current) use of oral hypoglycemic drugs; Z95.5 Presence of coronary angioplasty implant and graft
CPT/HCPCS: 92960; 93005

== ENCOUNTER 2021-03-14 09:02 | Outpatient (RCR) | payer OTHER ==
[~2021-03-14 09:02] MED LIST changes: -CATHETER FLUSH 10 ML SYR IV PRN; -NS IV 1000 ML 1,000 ML IV ONE; -NS IV 1000 ML 1,000 ML IV SCH; -NS IV 1000 ML 1,000 ML ONE; +SOTA120T PO; -proPOfol 200 MG/20 ML (DIPRIVAN) VIAL IV ONE
== END 2021-04-29 | disposition home or self-care (01) ==
LOC: CR 09:02
PROVIDERS: ATTEND Internal Medicine Cardiovascular Disease
DX: I50.22 Chronic systolic (congestive) heart failure (principal)
CPT/HCPCS: 93798

== ENCOUNTER → 2021-03-20 | Outpatient (CLI) | payer OTHER | LOC: CARD 07:56 | PROVIDERS: ATTEND Internal Medicine Cardiovascular Disease | DX: I51.7 Cardiomegaly (principal); I42.9 Cardiomyopathy, unspecified | CPT/HCPCS: 93306 ==

== ENCOUNTER → 2021-05-15 | Outpatient (CLI) | payer OTHER | LOC: CARD 09:00 | PROVIDERS: ATTEND Internal Medicine Cardiovascular Disease | DX: I35.8 Other nonrheumatic aortic valve disorders (principal); I42.9 Cardiomyopathy, unspecified; I51.7 Cardiomegaly; I51.89 Other ill-defined heart diseases | CPT/HCPCS: 93306 ==

== ENCOUNTER → 2021-09-07 | Outpatient (CLI) | payer OTHER | LOC: CARD 10:57 | PROVIDERS: ATTEND Internal Medicine Cardiovascular Disease | DX: I35.0 Nonrheumatic aortic (valve) stenosis (principal); I42.9 Cardiomyopathy, unspecified; I51.7 Cardiomegaly | CPT/HCPCS: 93306 ==

== ENCOUNTER → 2023-03-12 | Outpatient (CLI) | payer OTHER ==
[~2023-03-12] MED LIST changes: +CATHETER FLUSH 10 ML SYR IVP PRN
[2023-03-12 08:55] VITALS: BP 130/82
--- NOTE | 2023-03-12 15:14 | Cardiology Stress Test Report ---
Stress Test Report Date of Procedure/Referring: Date of Procedure: Mar 12, 2023 PCP Gabriella Gardiner DO Admitting Physician Admitting Physician: Attending Physician: Ty Beverly MD Baseline Heart Rate: 73 Baseline Blood Pressure: Blood Pressure Systolic: 130 Blood Pressure Diastolic: 82 Vital Signs Date Time Temp Pulse Resp B/P (MAP) Pulse Ox O2 Delivery O2 Flow Rate FiO2 03/12/23 08:55 78 130/82 (98) 98 Baseline Vital Signs Vital Signs Date Time Temp Pulse Resp B/P (MAP) Pulse Ox O2 Delivery O2 Flow Rate FiO2 03/12/23 08:55 78 130/82 (98) 98 Baseline EKG: Baseline EKG: NSR Summary: After explaining the procedure and details to the patient, he signed the consent and was brought to the stress nuclear laboratory. Patient exercised on standard Kehinde protocol, EKG, heart rate and blood pressure were monitored continuously, resting and stress doses of radio tracer were injected, imaging was acquired and reviewed in the short axis, horizontal long a xis and vertical long axis views Patient was able to exercise for a total of 9 minutes on Kehinde protocol, METs 10.5 Maximum heart rate 148 Maximum blood pressure 184/101 Stress EKG, Minimal nondiagnostic changes Recovery EKG, Return to baseline TID: 1.04 SSS: 3 SDS: 3 EF: 53 Conclusion: Excellent exercise tolerance for 9 minutes on standard Kehinde protocol total of 10.5 METS achieving 90% of maximal expected heart rate Appropriate heart rate response to exercise with hypertensive response to exercise with peak blood pressure 184/101 return to baseline during recovery Nondiagnostic EKG changes with exercise return to baseline during recovery Diaphragmatic attenuation with mild decrease uptake at the mid to apical inferior wall with mild reversibility, overall there is no significant ischemia or infarction noted on SPECT images Normal left ventricular size, ejection fraction 53% Copy Copies To 1: GABRIELLA GARDINER BASHAR J MD Mar 12, 2023 15:14
== END ==
LOC: CARD 07:03
PROVIDERS: ATTEND Internal Medicine Cardiovascular Disease
DX: I25.10 Atherosclerotic heart disease of native coronary artery without angina pectoris (principal)
CPT/HCPCS: 78452; 93017; A9502